=== PATIENT | female | born 1955 | race Caucasian/White ===

== ENCOUNTER 2017-02-14 12:51 | Emergency (ER) | payer MEDICARE, MEDICAID ==
--- NOTE | 2017-02-14 13:30 | EDM.PDOC ---
ED HPI GENERAL MEDICAL PROBLEM - General Chief Complaint: Upper Extremity Injury/Pain Stated Complaint: FALL Time Seen by Provider: 02/14/17 12:56 Source of Information: Reports: Other (care provider) History Limitations: Reports: No Limitations - History of Present Illness INITIAL COMMENTS - FREE TEXT/NARRATIVE: History of present illness: []Has severe cerebral palsy and is wheelchair confined. She received a new lift chair a week ago and he does not have a seatbelt. She started playing with the buttons and it lifted her up and she fell forward out of the chair. Caregivers bring her in for the first time today as she noticed she has yellowish green discoloration on the left anterior chest. Patient has been in her usual state of health on her regular meds and has not had a change in behavior, fevers or respiratory changes. Her caregiver does not note any increased pain with movement. Review of systems: As per history of present illness and below otherwise all systems reviewed and negative. Past medical history: As per history of present illness and as reviewed below otherwise noncontributory. Surgical history: As per history of present illness and as reviewed below otherwise noncontributory. Social history: No reported history of drug or alcohol abuse. Family history: As per history of present illness and as reviewed below otherwise noncontributory. Physical exam: General: Well developed, well nourished in NAD HEENT: Atraumatic, normocephalic, pupils reactive, negative for conjunctival pallor or scleral icterus, mucous membranes moist, throat clear, neck supple, nontender, trachea midline. Lungs: no subcutaneous emphysema, she has a yellowish-green area of Clear to auscultation, breath sounds equal bilaterally, chest nontender. Heart: S1S2, regular, negative for clicks, rubs, or JVD. Abdomen: Soft, nondistended, nontender. Negative for masses or hepatosplenomegaly. Negative for costovertebral tenderness. Pelvis: Stable nontender. Genitourinary: Deferred. Rectal: Deferred. Extremities: Atraumatic, negative for cords or calf pain. Neurovascular unremarkable. Neuro: Awake, alert, oriented. Cranial nerves II through XII unremarkable. Cerebellum unremarkable. Motor and sensory unremarkable throughout. Exam nonfocal. Diagnostics: []Patient's vital signs are stable Therapeutics: [] Impression: []chest wall contusion Plan: []ontinue present care follow-up with PMD as needed return if any shortness of breath, fevers or change in behavior occur Definitive disposition and diagnosis as appropriate pending reevaluation and review of above. no pain Pain Score (Numeric/FACES): 0 - Related Data Allergies Allergy/AdvReac Type Severity Reaction Status Date / Time No Known Allergies Allergy Verified 02/14/17 13:05 Past Medical History HEENT History: Reports: Cataract, Other (See Below) Other HEENT History: right eye posterior capsulotomy Cardiovascular History: Reports: None Respiratory History: Reports: None Gastrointestinal History: Reports: None Genitourinary History: Reports: None CHILD CAREGIVER History: Reports: None Neurological History: Reports: Cerebral Palsy, Other (See Below) Other Neuro History: Spastic Quadriplegia Psychiatric History: Reports: None Endocrine/Metabolic History: Reports: None Hematologic History: Reports: None Immunologic History: Reports: None Oncologic (Cancer) History: Reports: None Dermatologic History: Reports: None - Infectious Disease History Infectious Disease History: Reports: None - Past Surgical History HEENT Surgical History: Reports: Cataract Surgery, Oral Surgery Neurological Surgical History: Reports: Laminectomy Musculoskeletal Surgical History: Reports: Other (See Below) Other Musculoskeletal Surgeries/Procedures:: Laminectomy Social & Family History - Family History Family Medical History: Noncontributory - Tobacco Use Smoking Status *Q: Never Smoker - Caffeine Use Caffeine Use: Reports: None - Recreational Drug Use Recreational Drug Use: No Review of Systems - Review of Systems Review Of Systems: See Below (see history of present illness) ED EXAM, GENERAL - Physical Exam Exam: See Below (see history of present illness) Course - Vital Signs Last Recorded V/S: Last Vital Signs Temp 36.2 C 02/14/17 13:06 Pulse 83 02/14/17 13:06 Resp 18 02/14/17 13:06 BP 123/79 02/14/17 13:06 Pulse Ox 98 02/14/17 13:06 Departure - Departure Time of Disposition: 13:21 Disposition: Home, Self-Care 01 Condition: Good Clinical Impression: Fall Qualifiers: Encounter type: initial encounter Qualified Code(s): W19.XXXA - Unspecified fall, initial encounter Chest wall contusion Qualifiers: Encounter type: initial encounter Laterality: left Qualified Code(s): S20.212A - Contusion of left front wall of thorax, initial encounter - Discharge Information Forms: ED Department Discharge Additional Instructions: The following information is given to patients seen in the emergency department who are being discharged to home. This information is to outline your options for follow-up care. We provide all patients seen in our emergency department with a follow-up referral. The need for follow-up, as well as the timing and circumstances, are variable depending upon the specifics of your emergency department visit. If you don't have a primary care physician on staff, we will provide you with a referral. We always advise you to contact your personal physician following an emergency department visit to inform them of the circumstance of the visit and for follow-up with them and/or the need for any referrals to a consulting specialist. The emergency department will also refer you to a specialist when appropriate. This referral assures that you have the opportunity for follow-up care with a specialist. All of these measure are taken in an effort to provide you with optimal care, which includes your follow-up. Under all circumstances we always encourage you to contact your private physician who remains a resource for coordinating your care. When calling for follow-up care, please make the office aware that this follow-up is from your recent emergency room visit. If for any reason you are refused follow-up, please contact the [facility] Emergency Department at and asked to speak to the emergency department charge nurse. Continue regular meds and present care.follow-up as needed. [facility] [address] [place] [id number]
== END 2017-02-14 13:29 | disposition home or self-care (01) ==
LOC: MW.ED 12:51
CPT/HCPCS: 99282

== ENCOUNTER 2017-08-26 09:09 | Emergency (ER) | payer MEDICARE, MEDICAID ==
[2017-08-26] MEDS ORDERED: Sodium Chloride 0.9% 1,000 ML IV SCH (09:30)
[2017-08-26] MEDS ORDERED: Diazepam 5 MG/ML 10 ML Vial MDV IV ONE (09:30)
--- NOTE | 2017-08-26 09:32 | EDM.PDOC ---
ED HPI GENERAL MEDICAL PROBLEM - General Chief Complaint: Neurological Problem Stated Complaint: SEIZURES Time Seen by Provider: 08/26/17 09:31 Source of Information: Reports: Patient - History of Present Illness INITIAL COMMENTS - FREE TEXT/NARRATIVE: HISTORY AND PHYSICAL: History of present illness: [Patient presents with history of seizure disorder from local long-term She's had recent Adjustment in which her normal keppra dosing was decreased, she did end up with some seizure activity last night, and again this morning, she has not had any seizure activity since arrival to the emergency room on arrival I did prior provide Valium as a prophylactic dose No fever nausea vomiting chills sweats no headache dizziness or palpitation Review of systems: As per history of present illness and below otherwise all systems reviewed and negative. Past medical history: As per history of present illness and as reviewed below otherwise noncontributory. Surgical history: As per history of present illness and as reviewed below otherwise noncontributory. Social history: No reported history of drug or alcohol abuse. Family history: As per history of present illness and as reviewed below otherwise noncontributory. Physical exam: HEENT: Atraumatic, normocephalic, pupils reactive, negative for conjunctival pallor or scleral icterus, mucous membranes moist, throat clear, neck supple, nontender, trachea midline. Lungs: Clear to auscultation, breath sounds equal bilaterally, chest nontender. Heart: S1S2, regular, negative for clicks, rubs, or JVD. Abdomen: Soft, nondistended, nontender. Negative for masses or hepatosplenomegaly. Negative for costovertebral tenderness. Pelvis: Stable nontender. Genitourinary: Deferred. Rectal: Deferred. Extremities: Atraumatic, negative for cords or calf pain. Neurovascular unremarkable. Neuro: Awake, alert, oriented. Cranial nerves II through XII unremarkable. Cerebellum unremarkable. Motor and sensory unremarkable throughout. Exam nonfocal. Diagnostics: [CBC CMP troponin TSH UA Level Chest 1 view EKG ] Therapeutics: [Normal saline 1 25 mL per hour Valium 5 mg IV Due to diversion status patient will be sent to [facility] Dr. Hanley in the ER has accepted patient ] Impression: Hyponatremia [Seizure disorder] Definitive disposition and diagnosis as appropriate pending reevaluation and review of above. - Related Data Allergies Allergy/AdvReac Type Severity Reaction Status Date / Time carbamazepine [From Tegretol] Allergy Nausea and Verified 08/26/17 11:20 Vomiting erythromycin base Allergy Nausea and Verified 08/26/17 11:20 Vomiting Home Meds: Home Meds Baclofen [Baclofen] 20 mg PO TID 02/14/17 [History] Calcium Carbonate [Calcium] 1 tab PO DAILY 02/14/17 [History] Folic Acid 1 mg PO DAILY 02/14/17 [History] LORazepam [Lorazepam] 2 mg IJ ASDIRECTED 02/14/17 [History] Lisinopril 5 mg PO DAILY 02/14/17 [History] Polyethylene Glycol 3350 [MiraLAX] 8.5 gm PO DAILY 02/14/17 [History] carBAMazepine [Tegretol XR] 700 mg PO BID 02/14/17 [History] levETIRAcetam [Keppra] 500 mg PO BID 02/14/17 [History] oxyCODONE 2.5 mg PO TID 02/14/17 [History] oxyCODONE 5 mg PO BEDTIME 02/14/17 [History] Past Medical History HEENT History: Reports: Cataract, Other (See Below) Other HEENT History: right eye posterior capsulotomy Cardiovascular History: Reports: None Respiratory History: Reports: None Gastrointestinal History: Reports: None Genitourinary History: Reports: None BALL SORTER History: Reports: None Neurological History: Reports: Cerebral Palsy, Other (See Below) Other Neuro History: Spastic Quadriplegia Psychiatric History: Reports: None Endocrine/Metabolic History: Reports: None Hematologic History: Reports: None Immunologic History: Reports: None Oncologic (Cancer) History: Reports: None Dermatologic History: Reports: None - Infectious Disease History Infectious Disease History: Reports: None - Past Surgical History HEENT Surgical History: Reports: Cataract Surgery, Oral Surgery Neurological Surgical History: Reports: Laminectomy Musculoskeletal Surgical History: Reports: Other (See Below) Other Musculoskeletal Surgeries/Procedures:: Laminectomy Social & Family History - Family History Family Medical History: Noncontributory - Tobacco Use Smoking Status *Q: Never Smoker - Caffeine Use Caffeine Use: Reports: None - Recreational Drug Use Recreational Drug Use: No ED ROS GENERAL - Review of Systems Review Of Systems: ROS reveals no pertinent complaints other than HPI. ED EXAM, GENERAL - Physical Exam Exam: See Below Course - Vital Signs Last Recorded V/S: Last Vital Signs Temp 96.8 F 08/26/17 10:47 Pulse 76 08/26/17 10:47 Resp 16 08/26/17 10:47 BP 142/82 H 08/26/17 10:47 Pulse Ox 97 08/26/17 10:47 - Orders/Labs/Meds Orders: Active Orders 24 hr Category Date Time Status EKG Documentation Completion [RC] STAT Care 08/26/17 09:31 Active KEPPRA [REF] Stat Lab 08/26/17 09:43 Received UA W/MICROSCOPIC [URIN] Stat Lab 08/26/17 09:30 Uncollected Sodium Chloride 0.9% [Normal Saline] 1,000 ml Med 08/26/17 09:30 Active IV STAT Medication Orders Sodium Chloride (Normal Saline) 1,000 mls @ 125 mls/hr IV STAT CHEVY Last Admin: 08/26/17 09:51 Dose: 125 mls/hr Labs: Laboratory Tests 08/26/17 08/26/17 Range/Units 09:43 09:43 WBC 5.10 (4.0-11.0) K/uL RBC 3.49 L (4.30-5.90) M/uL Hgb 11.2 L (12.0-16.0) g/dL Hct 32.2 L (36.0-46.0) % MCV 92.3 (80.0-98.0) fL MCH 32.1 H (27.0-32.0) pg MCHC 34.8 (31.0-37.0) g/dL RDW Std Deviation 40.8 (28.0-62.0) fl RDW Coeff of Tr 12 (11.0-15.0) % Plt Count 245 (150-400) K/uL MPV 8.50 (7.40-12.00) fL Neut % (Auto) 63.9 (48.0-80.0) % Lymph % (Auto) 20.0 (16.0-40.0) % Hawkins % (Auto) 13.9 (0.0-15.0) % Eos % (Auto) 1.6 (0.0-7.0) % Baso % (Auto) 0.6 (0.0-1.5) % Neut # (Auto) 3.3 (1.4-5.7) K/uL Lymph # (Auto) 1.0 (0.6-2.4) K/uL Hawkins # (Auto) 0.7 (0.0-0.8) K/uL Eos # (Auto) 0.1 (0.0-0.7) K/uL Baso # (Auto) 0.0 (0.0-0.1) K/uL Nucleated RBC % 0.0 /100WBC Nucleated RBCs # 0 K/uL Sodium 129 L (136-146) mmol/L Potassium 4.0 (3.5-5.1) mmol/L Chloride 97 L (98-110) mmol/L Carbon Dioxide 25 (21-31) mmol/L BUN 7 (6.0-23.0) mg/dL Creatinine 0.5 L (0.6-1.5) mg/dL Est Cr Clr Drug Dosing TNP Estimated GFR (MDRD) > 60.0 ml/min Glucose 101 (60-110) mg/dL Calcium 8.5 L (8.8-10.8) mg/dL Total Bilirubin 0.3 (0.1-1.5) mg/dL AST 18 (5-40) IU/L ALT 18 (8-54) IU/L Alkaline Phosphatase 137 (40-150) Troponin I < 0.10 (0.0-0.29) NG/ML Total Protein 6.5 (6.0-8.0) g/dL Albumin 3.6 (3.4-4.8) g/dL Globulin 2.9 (2.0-3.5) g/dL Albumin/Globulin Ratio 1.2 L (1.3-2.8) TSH 3rd Generation 1.93 (0.47-5.0) uIU/mL Meds: Medications Generic Name Dose Route Start Last Admin Trade Name Freq PRN Reason Stop Dose Admin Sodium Chloride 1,000 mls @ 125 mls/hr 08/26/17 09:30 08/26/17 09:51 Normal Saline IV 125 mls/hr STAT CHEVY Administration Discontinued Medications Generic Name Dose Route Start Last Admin Trade Name Freq PRN Reason Stop Dose Admin Diazepam 5 mg 08/26/17 09:30 08/26/17 09:51 Valium IV 08/26/17 09:31 5 mg ONETIME ONE Administration Departure - Departure Time of Disposition: 11:29 Disposition: Home, Self-Care 01 Condition: Good Clinical Impression: Hyponatremia, Seizure disorder - Discharge Information Forms: ED Department Discharge - My Orders Last 24 Hours: My Active Orders 08/26/17 09:30 UA W/MICROSCOPIC [URIN] Stat Sodium Chloride 0.9% [Normal Saline] 1,000 ml IV STAT 08/26/17 09:31 EKG Documentation Completion [RC] STAT 08/26/17 09:43 KEPPRA [REF] Stat - Assessment/Plan Last 24 Hours: My Active Orders 08/26/17 09:30 UA W/MICROSCOPIC [URIN] Stat Sodium Chloride 0.9% [Normal Saline] 1,000 ml IV STAT 08/26/17 09:31 EKG Documentation Completion [RC] STAT 08/26/17 09:43 KEPPRA [REF] Stat
[2017-08-26 10:21] LABS: CHLORIDE,CL 97 mmol/L (98-110); SODIUM,NA 129 mmol/L (136-146)
--- NOTE | 2017-08-26 10:48 | CR ---
Single view portable chest Clinical history: Pain and shortness of breath Comparison: None Findings: The examination is exposed with slight rotation to the right. There is no infiltrate failur e volume loss or other acute finding. No displaced rib fracture noted. No pneumothorax Impression: No acute cardiopulmonary disease
[2017-08-26 13:30] VITALS: BP 161/83
[2017-08-26] MEDS ORDERED: Diazepam 5 MG/ML 10 ML Vial MDV ONE (13:58)
== END 2017-08-26 13:35 ==
LOC: MW.ED 09:09
DX: G40.909 Epilepsy, unspecified, not intractable, without status epilepticus (principal); E87.1 Hypo-osmolality and hyponatremia; Z88.8 Allergy status to other drugs, medicaments and biological substances; Z79.899 Other long term (current) drug therapy
CPT/HCPCS: 36415; 71045; 80053; 80177; 81001; 84443; 84484; 85025; 93005; 96361; 96374; 99285; A9270; J7040; 99284

== ENCOUNTER 2019-01-01 08:10 | Observation (INO) | payer MEDICARE, MEDICAID ==
[~2019-01-01 08:10] MED LIST: ceFAZolin 2 GM in Premix Bag 1 BAG IV SCH
--- NOTE | 2019-01-01 09:16 | PCM.PREANE ---
Preanesthetic Assessment - Anesthesia/Transfusion/Family Hx Anesthesia History: Prior Anesthesia Without Reaction Family History of Anesthesia Reaction: No Transfusion History: No Prior Transfusion(s) Intubation History: Unknown - Review of Systems General: No Symptoms Pulmonary: No Symptoms Cardiovascular: No Symptoms Gastrointestinal: No Symptoms Neurological: Confusion Other: Reports: None - Physical Assessment Weight: 57.153 kg ASA Class: 3 Mental Status: Alert & Oriented x3 Airway Class: Mallampati = 2 Dentition: Reports: Partial (upper) Thyro-Mental Finger Breadths: 3 Mouth Opening Finger Breadths: 3 ROM/Head Extension: Full Lungs: Clear to Auscultation, Normal Respiratory Effort Cardiovascular: Regular Rate, Regular Rhythm - Allergies Allergies/Adverse Reactions: Allergies Allergy/AdvReac Type Severity Reaction Status Date / Time erythromycin base Allergy Nausea and Verified 12/30/18 12:47 Vomiting - Blood Blood Available: No - Anesthesia Plan Pre-Op Medication Ordered: None - Acknowledgements Anesthesia Type Planned: General Anesthesia Pt an Appropriate Candidate for the Planned Anesthesia: Yes Alternatives and Risks of Anesthesia Discussed w Pt/Guardian: Yes Pt/Guardian Understands and Agrees with Anesthesia Plan: Yes PreAnesthesia Questionnaire HEENT History: Reports: Cataract, Other (See Below) Other HEENT History: right eye posterior capsulotomy Cardiovascular History: Reports: Hypertension Respiratory History: Reports: None Gastrointestinal History: Reports: None Genitourinary History: Reports: None LOCKER ROOM MANAGER History: Reports: None Musculoskeletal History: Reports: Arthritis (left hip), Other (See Below) Other Musculoskeletal History: Scoliosis, spastic quadraplegia Neurological History: Reports: Cerebral Palsy, Seizure, Other (See Below) Other Neuro History: Spastic Quadriplegia Psychiatric History: Reports: Other (See Below) Other Psychiatric History: Mental disabled Endocrine/Metabolic History: Reports: None Hematologic History: Reports: None Immunologic History: Reports: None Oncologic (Cancer) History: Reports: None Dermatologic History: Reports: None - Infectious Disease History Infectious Disease History: Reports: None - Past Surgical History HEENT Surgical History: Reports: Cataract Surgery, Oral Surgery Other HEENT Surgeries/Procedures: multiple dental cleanings Female Surgical History: Reports: Other (See Below) Other Female Surgeries/Procedures: Laparoscopy Neurological Surgical History: Reports: C-Spine, Laminectomy Musculoskeletal Surgical History: Reports: Other (See Below) Other Musculoskeletal Surgeries/Procedures:: cervical Laminectomy, C3-C6, lengthening of leg muscles - SUBSTANCE USE Smoking Status *Q: Never Smoker Recreational Drug Use History: No - HOME MEDS Home Medications: Home Meds Baclofen 20 mg PO QID 02/14/17 [History] Folic Acid 1 mg PO DAILY 02/14/17 [History] Lisinopril 5 mg PO DAILY 02/14/17 [History] Polyethylene Glycol 3350 [MiraLAX] 8.5 gm PO ASDIRECTED 02/14/17 [History] carBAMazepine [Tegretol XR] 600 mg PO BID 02/14/17 [History] levETIRAcetam [Keppra] 500 mg PO BID 02/14/17 [History] oxyCODONE 2.5 mg PO QID 02/14/17 [History] oxyCODONE 5 mg PO BEDTIME 02/14/17 [History] Calcium Carbonate/Vitamin D3 [Calcium 600 + Vit D 400 Softgl] 1 cap PO DAILY 12/13 [History] Hydrocodone/Acetaminophen [Hydrocodon-Acetaminophen 5-325] 1 tab PO ASDIRECTED PRN 12/30/18 [History] - CURRENT (IN HOUSE) MEDS Current Meds: Current Medications Cefazolin Sodium/Dextrose 2 gm (/ Premix) 50 mls @ 100 mls/hr IV ONETIME CHEVY Tranexamic Acid (Cyklokapron) 2,000 mg IV ONETIME ONE Stop: 01/01/19 10:01
[2019-01-01] MEDS: Lactated Ringers 1,000 ML IV SCH ×2 (09:51→15:59)
[2019-01-01] MEDS ORDERED: Lidocaine 2% 5 ML SDV ONE (10:34)
[2019-01-01] MEDS ORDERED: Rocuronium 100 MG/10 ML MDV ONE (10:34)
[2019-01-01] MEDS ORDERED: Midazolam 1 MG/ML 2 ML SDV ONE (10:34)
[2019-01-01] MEDS ORDERED: Propofol 200 MG/20 ML SDV ONE (10:34)
[2019-01-01] MEDS ORDERED: fentaNYL 100 MCG/2 ML SDV ONE (10:34)
[2019-01-01] MEDS ORDERED: Sugammadex Sodium 200 MG/2 ML VIAL ONE (10:42)
[2019-01-01] MEDS ORDERED: Octyl 2-Cyanoacrylate 1 Tube ONE (10:58)
[2019-01-01] MEDS ORDERED: Morphine 4 MG/ML Syringe IV PRN (12:12)
[2019-01-01] MEDS ORDERED: Ondansetron 4 MG/2 ML SDV IV PRN (12:12)
[2019-01-01] MEDS ORDERED: Acetaminophen/HYDROcodone 325-5 MG Tab PO PRN (12:12)
--- NOTE | 2019-01-01 12:16 | PCM.OPNOTE ---
- General Post-Op/Procedure Note Date of Surgery/Procedure: 01/01/19 Operative Procedure(s): left hip girdlestone Findings: severe OA Pre Op Diagnosis: left hip severe osteoarthritis Post-Op Diagnosis: same Anesthesia Technique: General ET Tube Primary Surgeon: Luis Cook Mai Dining Car Conductor: Lizzie Villalobos Pathology: femoral head EBL in mLs: 300 Complications: none Condition: Good
[2019-01-01] MEDS ORDERED: Morphine 4 MG/ML Syringe IVPUSH ONE (12:49)
--- NOTE | 2019-01-01 13:16 | PCM.POSTAN ---
POST ANESTHESIA ASSESSMENT - MENTAL STATUS Mental Status: Somnolent, Other (sleepy) - RESPIRATORY Respiratory Status: Respiratory Rate WNL, Airway Patent, O2 Saturation Stable - CARDIOVASCULAR CV Status: Pulse Rate WNL, Blood Pressure Stable - GASTROINTESTINAL GI Status: No Symptoms - PAIN Pain Score: 4 - POST OP HYDRATION Hydration Status: Adequate & Stable - OBSERVATIONS Free Text/Narrative:: No anesthesia problems
--- NOTE | 2019-01-01 13:20 | OR ---
SURGEON: Luis Cespedes MD DATE OF PROCEDURE: 01/01/2019 PRIMARY SURGEON: Luis Cespedes MD. SHOPPING INSPECTOR: Lizzie Villalobos PA-C. PREOPERATIVE DIAGNOSIS: Left hip severe osteoarthritis. POSTOPERATIVE DIAGNOSIS: Left hip severe osteoarthritis. OPERATION PERFORMED: Left hip girdle stone. ANESTHESIA: General. COMPLICATIONS: None. ESTIMATED BLOOD LOSS: 300 mL. SPECIMENS: Femoral head. INDICATIONS: The patient is a 63-year-old handicapped female who is nonverbal and nonambulatory with severe hip arthritis with contractures, her caregivers ability to care for her. I discussed with them the risks, benefits, alternatives, and complications of the above procedure. In the interim, they wished to proceed including the father. DESCRIPTION OF PROCEDURE: The patient was seen in the preoperative area. Operative extremity was marked with the caregiver. She was transferred to the operating room and placed supine on the operating room table. General anesthesia was induced. Endotracheal tube was placed. A formal time-out was taken identifying the correct patient, procedure, and extremity. She received preop antibiotics with Ancef 2 g and TXA. She was assessed. She did not necessarily have tight abductors, but she did have a large flexion contracture, approximately 45 degrees. Inability to abduct the leg to less than 10 degrees negative for midline. It was deemed acceptable to proceed with the hip anteriorly. Her left hip was then prepped and draped in the usual sterile fashion using alcohol followed by ChloraPrep with Ioban covering. An 8 cm incision starting just lateral to the ASIS and going oblique to the femur was made. Dissection was carried down through the subcutaneous tissues. Hemostasis was obtained. The fascia overlying the TFL lateral femoral cutaneous nerve was opened, and the interval between TFL and sartorius and deep between the abductors and rectus was opened. The vastus lateralis fascia was opened. The anterior vessels were coagulated. The indirect and portions of the direct head of the rectus were released and the capsule was held and tagged with 2 sutures. The patient had severe synovitis in the hip and severe arthritis. The neck was exposed and then cut as low as possible just above the lesser and even going into the lesser trochanter. A corkscrew was placed, but the head was unable to reduce due to the poor quality of the bone. It was removed in piecemeal and a complete excision of the head and neck, and portions of the lesser and greater trochanter were removed. The hip ranged very well. We were able to abduct her approximately 30 degrees and extend her down with a flexion contracture approximately 20 to 30 degrees, which is less than the opposite side. The wound was then thoroughly irrigated and removed of any small bone fragments. The 2 tag sutures were tied together. The fascia was closed with #1 Vicryl, subcutaneous tissues with 2-0 STRATAFIX, and skin with running 4-0 Monocryl. Dermabond tape and Aquacel dressing were placed. At this point, there was no tight band of the adductor, therefore, a release was not necessary. Then, a Hogue catheter was placed. She was x-rayed in the operating room and transferred to the recovery room in stable condition. Sponge and needle counts were correct at the end of the case. There were no complications. She will take aspirin for DVT prophylaxis. JERRI CASANOVA /[id number]
[2019-01-01 13:43] LABS: CHLORIDE,CL 96 mmol/L (98-107); SODIUM,NA 128 mmol/L (136-145)
--- NOTE | 2019-01-01 14:17 | PCM.CONS ---
H&P History of Present Illness - General Date of Service: 01/01/19 Admit Problem/Dx: Admission Diagnosis/Problem Admission Diagnosis/Problem Hip pain Source of Information: Old Records, Other (caregivers) History Limitations: Reports: No Limitations - History of Present Illness Initial Comments - Free Text/Narative: This 63 year old female with pmh of seizure disorder, spastic quadraplegia, cerebral palsy, and mentally disabled presented today for L hip girdlestone for severe osteoarthritis. She is alert after surgery, 2 caregivers at the bedside. She is non verbal, but shakes her head yes and now with simple questions. She is comfortable currently lying on her left hip. Caregivers reports seizures are controlled and her last was about 1 year ago. In reveiw of pre-operative labwork, hyponatremia noted at 125. Today Na 128. - Related Data Allergies/Adverse Reactions: Allergies Allergy/AdvReac Type Severity Reaction Status Date / Time erythromycin base Allergy Nausea and Verified 01/01/19 09:46 Vomiting Home Medications: Home Meds Baclofen 20 mg PO QID 02/14/17 [History] Folic Acid 1 mg PO DAILY 02/14/17 [History] Lisinopril 5 mg PO DAILY 02/14/17 [History] Polyethylene Glycol 3350 [MiraLAX] 8.5 gm PO Q2D@0900 02/14/17 [History] carBAMazepine [Tegretol XR] 600 mg PO BID 02/14/17 [History] levETIRAcetam [Keppra] 500 mg PO BID 02/14/17 [History] oxyCODONE 2.5 mg PO QID 02/14/17 [History] oxyCODONE 5 mg PO BEDTIME 02/14/17 [History] Calcium Carbonate/Vitamin D3 [Calcium 600 + Vit D 400 Softgl] 1 tab PO BID 12/30 [History] Hydrocodone/Acetaminophen [Hydrocodon-Acetaminophen 5-325] 1 tab PO ASDIRECTED PRN 12/30/18 [History] Past Medical History HEENT History: Reports: Cataract, Other (See Below) Other HEENT History: right eye posterior capsulotomy Cardiovascular History: Reports: Hypertension Respiratory History: Reports: None Gastrointestinal History: Reports: None Genitourinary History: Reports: None FINANCIAL SERVICES ASSISTANT History: Reports: None Musculoskeletal History: Reports: Arthritis, Other (See Below) Other Musculoskeletal History: Scoliosis, spastic quadraplegia Neurological History: Reports: Cerebral Palsy, Seizure, Other (See Below) Other Neuro History: Spastic Quadriplegia Psychiatric History: Reports: Other (See Below) Other Psychiatric History: Mental disabled Endocrine/Metabolic History: Reports: None Hematologic History: Reports: None Immunologic History: Reports: None Oncologic (Cancer) History: Reports: None Dermatologic History: Reports: None - Infectious Disease History Infectious Disease History: Reports: None - Past Surgical History HEENT Surgical History: Reports: Cataract Surgery, Oral Surgery Other HEENT Surgeries/Procedures: multiple dental cleanings Female Surgical History: Reports: Other (See Below) Other Female Surgeries/Procedures: Laparoscopy Neurological Surgical History: Reports: C-Spine, Laminectomy Musculoskeletal Surgical History: Reports: Other (See Below) Other Musculoskeletal Surgeries/Procedures:: cervical Laminectomy, C3-C6, lengthening of leg muscles Social & Family History - Family History Family Medical History: Noncontributory - Tobacco Use Smoking Status *Q: Never Smoker - Caffeine Use Caffeine Use: Reports: None - Recreational Drug Use Recreational Drug Use: No H&P Review of Systems - Review of Systems: Review Of Systems: See Below (answers simple questions, shaking head yes or no) Pulmonary: Reports: No Symptoms. Denies: Shortness of Breath Cardiovascular: Reports: No Symptoms. Denies: Chest Pain Musculoskeletal: Reports: No Symptoms. Denies: Leg Pain Exam - Exam Exam: See Below - Vital Signs Vital Signs: Last Vital Signs Temp 95.6 F 01/01/19 13:45 Pulse 72 01/01/19 13:45 Resp 18 01/01/19 13:45 BP 111/76 01/01/19 13:45 Pulse Ox 97 01/01/19 13:45 Weight: 57.153 kg - Exam Quality Assessment: Supplemental Oxygen General: Alert, Cooperative Lungs: Clear to Auscultation, Normal Respiratory Effort Cardiovascular: Regular Rate, Regular Rhythm, Normal S1, Normal S2 GI/Abdominal Exam: Normal Bowel Sounds, Soft, Non-Tender, No Distention Extremities: Normal Inspection, No Pedal Edema Neuro Extensive - Mental Status: Alert, Normal Mood/Affect, Normal Cognition Psychiatric: Alert, Normal Affect, Normal Mood - Patient Data Lab Results Last 24 hrs: Laboratory Results - last 24 hr 01/01/19 01/01/19 Range/Units 13:07 13:07 WBC 6.43 (4.0-11.0) K/uL RBC 3.24 L (4.30-5.90) M/uL Hgb 10.5 L (12.0-16.0) g/dL Hct 30.3 L (36.0-46.0) % MCV 93.5 (80.0-98.0) fL MCH 32.4 H (27.0-32.0) pg MCHC 34.7 (31.0-37.0) g/dL RDW Std Deviation 40.0 (28.0-62.0) fl RDW Coeff of Tr 12 (11.0-15.0) % Plt Count 173 (150-400) K/uL MPV 9.30 (7.40-12.00) fL Neut % (Auto) 70.0 (48.0-80.0) % Lymph % (Auto) 19.1 (16.0-40.0) % [place] % (Auto) 9.5 (0.0-15.0) % Eos % (Auto) 1.1 (0.0-7.0) % Baso % (Auto) 0.3 (0.0-1.5) % Neut # (Auto) 4.5 (1.4-5.7) K/uL Lymph # (Auto) 1.2 (0.6-2.4) K/uL [place] # (Auto) 0.6 (0.0-0.8) K/uL Eos # (Auto) 0.1 (0.0-0.7) K/uL Baso # (Auto) 0.0 (0.0-0.1) K/uL Nucleated RBC % 0.0 /100WBC Nucleated RBCs # 0 K/uL Sodium 128 L (136-145) mmol/L Potassium 3.4 L (3.5-5.1) mmol/L Chloride 96 L (98-107) mmol/L Carbon Dioxide 24.2 (21.0-32.0) mmol/L BUN 6 L (7.0-18.0) mg/dL Creatinine 0.4 L (0.6-1.0) mg/dL Est Cr Clr Drug Dosing TNP Estimated GFR (MDRD) > 60.0 ml/min Glucose 130 H (74-106) mg/dL Calcium 7.9 L (8.5-10.1) mg/dL Result Diagrams: 01/01/19 13:07 01/01/19 13:07 Consult PN Assessment/Plan Procedures: Procedures ASSAY OF TROPONIN QUANT (08/26/17) ASSAY THYROID STIM HORMONE (08/26/17) COMPLETE CBC W/AUTO DIFF WBC (08/26/17) COMPREHEN METABOLIC PANEL (08/26/17) DRAIN/INJ JOINT/BURSA W/O US (11/15/14) DRUG SCRN CLIFF LEVETIRACETAM (08/26/17) ELECTROCARDIOGRAM TRACING (08/26/17) EMERGENCY DEPT VISIT (08/26/17) EMERGENCY DEPT VISIT (02/14/17) FLUOROSCOPY <1 HR PHYS/QHP (11/15/14) HYDRATE IV INFUSION ADD-ON (08/26/17) OFFICE/OUTPATIENT VISIT NEW (03/04/17) OT EVAL MOD COMPLEX 45 MIN (01/06/17) ROUTINE VENIPUNCTURE (08/26/17) THER/PROPH/DIAG INJ IV PUSH (08/26/17) URINALYSIS AUTO W/SCOPE (08/26/17) US EXAM PELVIC COMPLETE (06/25/17) X-RAY EXAM CHEST 1 VIEW (08/26/17) (1) S/P Girdlestone procedure SNOMED Code(s): 144167054 Code(s): Z98.890 - OTHER SPECIFIED POSTPROCEDURAL STATES Current Visit: Yes (2) Spastic quadriplegia SNOMED Code(s): 255133964 Code(s): G82.50 - QUADRIPLEGIA, UNSPECIFIED Current Visit: Yes (3) Cerebral palsy SNOMED Code(s): 847176953 Code(s): G80.9 - CEREBRAL PALSY, UNSPECIFIED Current Visit: Yes (4) Hyponatremia SNOMED Code(s): 14745899 Code(s): E87.1 - HYPO-OSMOLALITY AND HYPONATREMIA Current Visit: No (5) Seizure disorder SNOMED Code(s): 274813654 Code(s): G40.909 - EPILEPSY, UNSP, NOT INTRACTABLE, WITHOUT STATUS EPILEPTICUS Current Visit: No Problem List Initiated/Reviewed/Updated: Yes My Orders Last 24 Hours: My Active Orders 01/01/19 Lunch Regular Diet [DIET] Plan: This 63 year old female admitted with L hip girdlestone procedure for osteoarthritis. Hospitalist consulted for medical management 1. S/P girdlestone procedure to L hip: Orders per Dr Cespedes. Monitor for sedation with Home medication of Baclofen and other narcotics for pain. 2. Seizure disorder: Continue Tegretol and Keppra. 3. Hyponatremia: Appears to be at baseline. Will monitor in am.
[2019-01-01] MEDS: diazePAM 5 MG/ML MDV IVPUSH SCH ×3 (16:48→21:42)
[2019-01-01] MEDS: ceFAZolin 1 GM in Premix Bag 1 BAG IV SCH (16:49)
[2019-01-01] MEDS: Baclofen 10 MG Tab PO SCH ×2 (18:44→23:27)
[2019-01-01] MEDS: oxyCODONE 5 MG Tab PO SCH ×2 (18:45→23:27)
[2019-01-01] MEDS: levETIRAcetam 500 MG Tab PO SCH (20:18)
[2019-01-01] MEDS: carBAMazepine 100 MG Cap.ER PO SCH (20:19)
[2019-01-01] MEDS ORDERED: oxyCODONE 5 MG Tab PO SCH (21:00)
[2019-01-02] MEDS: ceFAZolin 1 GM in Premix Bag 1 BAG IV SCH ×2 (00:17→10:00)
[2019-01-02] MEDS: Lactated Ringers 1,000 ML IV SCH (00:18)
[2019-01-02] MEDS: Baclofen 10 MG Tab PO SCH ×3 (00:21→12:24)
[2019-01-02] MEDS: oxyCODONE 5 MG Tab PO SCH ×3 (00:21→12:24)
[2019-01-02] MEDS: diazePAM 5 MG/ML MDV IVPUSH SCH ×2 (03:42→10:11)
--- NOTE | 2019-01-02 08:44 | PCM.SN ---
- Free Text/Narrative Note: Subjective: Patient is able to nod her head she is in less pain than before surgery. She denies other issues. Nursing noted that she did not need to take her regular scheduled pain medications overnight Objective: Afebrile, vital signs stable Left thigh dressing is clean/dry/intact. I'm able to move her hip with minimal pain. There is no swelling proximally or distally. There is a palpable pulse. Assessment/plan: Postoperative day #1 Girdlestone left hip severe arthritis with spastic quadriplegia - Activity as tolerated - Leave dressing on - DC [place] - Return to home today. - Ecotrin for DVT prophylaxis
[2019-01-02] MEDS ORDERED: Sodium Chloride 0.9% 10 ML Syringe FLUSH PRN (08:45)
[2019-01-02] MEDS ORDERED: Sodium Chloride 0.9% 2.5 ML Syringe FLUSH PRN (08:45)
[2019-01-02] MEDS ORDERED: Lisinopril 5 MG Tab PO SCH (09:00)
[2019-01-02] MEDS ORDERED: Aspirin 325 MG Tab PO SCH (09:00)
[2019-01-02] MEDS ORDERED: Folic Acid 1 MG Tab PO SCH (09:00)
[2019-01-02] MEDS ORDERED: Celecoxib 100 MG Cap PO SCH (09:00)
[2019-01-02] MEDS: carBAMazepine 100 MG Cap.ER PO SCH (10:01)
[2019-01-02] MEDS: levETIRAcetam 500 MG Tab PO SCH (10:04)
[2019-01-03] MEDS ORDERED: Polyethylene Glycol 3350 Powder 17 GM Packet PO SCH (09:00)
--- NOTE | 2019-01-03 09:22 | PCM48HPAN ---
Post Anesthesia Note - EVALUATION WITHIN 48HRS OF ANESTHETIC Vital Signs in Normal Range: Yes Patient Participated in Evaluation: Yes Respiratory Function Stable: Yes Airway Patent: Yes Cardiovascular Function Stable: Yes Hydration Status Stable: Yes Pain Control Satisfactory: Yes Nausea and Vomiting Control Satisfactory: Yes Mental Status Recovered: Yes Resp Rate: 20 Blood Pressure: 122/74 - COMMENTS/OBSERVATIONS Free Text/Narrative:: no anesthesia problems
[2019-01-03 09:23] VITALS: BP 122/74
== END 2019-01-02 12:40 | disposition home or self-care (01) ==
LOC: INTOOBSV 08:10 → MW.MS 08:10
PROVIDERS: ADMIT Orthopaedic Surgery; ATTEND Orthopaedic Surgery
DX: M16.12 Unilateral primary osteoarthritis, left hip (principal); M65.852 Other synovitis and tenosynovitis, left thigh; I10 Essential (primary) hypertension; G40.909 Epilepsy, unspecified, not intractable, without status epilepticus; G80.0 Spastic quadriplegic cerebral palsy; Z88.1 Allergy status to other antibiotic agents; Z79.891 Long term (current) use of opiate analgesic; Z79.899 Other long term (current) drug therapy
CPT/HCPCS: 27122; 36415; 80048; 85014; 85018; 85025; 96374; 96376; A4217; A9270; G0378; J0131; J0690; J2001; J2250; J2270; J2704; J3010; J3490; J7120

== ENCOUNTER 2019-01-03 20:51 | Emergency (ER) | payer MEDICARE, MEDICAID ==
[2019-01-03] MEDS ORDERED: Etomidate 2 MG/ML 20 ML SDV IVPUSH ONE (20:52)
[2019-01-03] MEDS ORDERED: Succinylcholine 200 MG/10 ML MDV IV ONE (20:52)
[2019-01-03] MEDS ORDERED: Naloxone 0.4 MG/ML Syringe IVPUSH ONE (21:01)
[2019-01-03] MEDS ORDERED: Ondansetron 4 MG/2 ML SDV IVPUSH ONE (21:01)
[2019-01-03] MEDS ORDERED: Ondansetron 4 MG/2 ML SDV ONE (21:01)
[2019-01-03] MEDS ORDERED: Naloxone 0.4 MG/ML Syringe ONE ×2 (21:01→21:05)
[2019-01-03 21:11] VITALS: BP 113/87
[2019-01-03] MEDS ORDERED: Sodium Chloride 0.9% 1,000 ML IV ONE ×3 (21:22→21:45)
[2019-01-03] MEDS ORDERED: Sodium Chloride 0.9% 10 ML Syringe FLUSH PRN (21:22)
[2019-01-03] MEDS ORDERED: Piperacillin/Tazobactam 3.375 GM in Sodium Chloride 0.9% 50 ML IV ONE (21:22)
[2019-01-03] MEDS ORDERED: Clindamycin Phosphate in D5W 600 MG in Premix Bag 50 BAG IV ONE ×2 (21:22)
[2019-01-03] MEDS ORDERED: Sodium Chloride 0.9% 2.5 ML Syringe FLUSH PRN (21:22)
[2019-01-03] MEDS ORDERED: Clindamycin Phosphate in D5W 50 ML ONE (21:23)
--- NOTE | 2019-01-03 21:41 | EDM.PDOC ---
ED HPI GENERAL MEDICAL PROBLEM - General Chief Complaint: Neurological Problem Stated Complaint: ALTERED MENTAL STATE Time Seen by Provider: 01/03/19 20:55 - History of Present Illness INITIAL COMMENTS - FREE TEXT/NARRATIVE: HISTORY AND PHYSICAL: History of present illness: The patient is a 63-year-old female who presents via EMS from a halfway with reported altered mental status. Caregivers say that she was found altered and gurgling with vomiting. It is unclear if she had a seizure or became obtunded from pain medications and then vomited and subsequently aspirated or just had a seizure and became altered. The story is very unclear as she was last seen normal and then found in this current state. The patient had emesis all over her nightgown and was gurgling respirations on arrival. This patient has a history of a seizure disorder spastic quadriplegia cerebral palsy mental disability and she is normally nonverbal. The patient offered no history she was in extremis and caregivers were not present to give anymore information. Caregivers eventually arrived at the ED with her med list. The patient just underwent left heart surgery here in our facility and was noted to have a low sodium of 128 prior to surgery. The surgery was still performed and a medical consult was performed by our hospitalist preop. According to the brief history I have she was doing well until these events. Review of systems: As per history of present illness and below otherwise all systems reviewed and negative. Past medical history: As per history of present illness and as reviewed below otherwise noncontributory. Surgical history: As per history of present illness and as reviewed below otherwise noncontributory. Social history: No reported history of drug or alcohol abuse. Family history: As per history of present illness and as reviewed below otherwise noncontributory. Physical exam: General: Well-developed very petite female who is gurgling respirations with emesis and her mouth and on her nightgown and out of her nose and respirations are as documented. On my personal evaluation her O2 sats were dropping down to the 60s and in the 50s. A nonrebreather brought her up to the 90s. A nasal trumpet was placed in the right near by me on arrival HEENT: Atraumatic, normocephalic, pupils very pinpoint and nonreactive, negative for conjunctival pallor or scleral icterus, mucous membranes moist, throat clear, neck supple, nontender, trachea midline. Lungs: Breath sounds rales and rhonchi throughout all lung canas right greater than left and there is abdominal worker breathing and audible noisy airway breath sounds equal bilaterally, chest nontender. Heart: S1S2, regular rhythm and tachycardic rate of my evaluation but a murmur cannot be appreciated as there is so much airway noise. Abdomen: Soft, nondistended, nontender. Negative for masses or hepatosplenomegaly. Bowel sounds are hypoactive Pelvis: Stable nontender. There is a dressing noted at the left hip area which is clean and dry and there is no surrounding erythema Genitourinary: Deferred. Rectal: Deferred. Extremities: Atraumatic, atrophied in the lower extremity and there is no spontaneous movement but no bony defects or deformities are appreciated Neurovascular unremarkable. Neuro: Patient is obtunded and nonverbal and is not responding to painful stimuli. She is not moving any extremities spontaneously. Further evaluation is not performed due to extremis Skin: Cool and dry and very pallor overall Diagnostics: Chest x-ray 2 CBC CMP lactic acid troponin EKG UA blood cultures Therapeutics: IV fluids Zofran Narcan Zosyn and clindamycin On patient arrival it was determined immediately that she needed intubation for airway protection and to improve oxygenation. Anesthesia was called and intubation was performed without complication or difficulty. Please see his note for further information. I placed a nasal trumpet in the right side without difficulty. I attempted several times to gain access for a central line in the right femoral area and did access the artery once and was unable to access the vein so these attempts were aborted. Right interosseous line was placed without complication under semi-sterile procedures. Line is good and is currently being used. Please see anesthesia's note as they attempted to get a right neck line both EJ and IJ and were unsuccessful. A post attempt and post intubation x-ray was performed Patient did become hypotensive with our efforts and is receiving IV fluids and after intubation and some IV fluids her pressure did normalize. She is still slightly tachycardic. 2124: Case was discussed with Dr. Bray at [facility] in the ER and he is aware of the situation except the patient. Flight team is currently at bedside. On my reevaluation of her pupillary exam they are currently equal and only [address] Bray had asked me about the patient's advanced directives and I will attempt to discuss with the caregiver this information prior to transport out but with the flight team at bedside and the patient's current status she will still continue to be transported as is. Impression: Altered mental status, aspiration with hypoxemia Definitive disposition and diagnosis as appropriate pending reevaluation and review of above. - Related Data Allergies Allergy/AdvReac Type Severity Reaction Status Date / Time erythromycin base Allergy Nausea and Verified 01/03/19 21:14 Vomiting Home Meds: Home Meds Baclofen 20 mg PO QID 02/14/17 [History] Folic Acid 1 mg PO DAILY 02/14/17 [History] Lisinopril 5 mg PO DAILY 02/14/17 [History] Polyethylene Glycol 3350 [MiraLAX] 8.5 gm PO Q2D@0900 02/14/17 [History] carBAMazepine [Tegretol XR] 600 mg PO BID 02/14/17 [History] levETIRAcetam [Keppra] 500 mg PO BID 02/14/17 [History] oxyCODONE 2.5 mg PO QID 02/14/17 [History] oxyCODONE 5 mg PO BEDTIME 02/14/17 [History] Calcium Carbonate/Vitamin D3 [Calcium 600 + Vit D 400 Softgl] 1 tab PO BID 12/30 [History] Hydrocodone/Acetaminophen [Hydrocodon-Acetaminophen 5-325] 1 tab PO ASDIRECTED PRN 12/30/18 [History] Past Medical History HEENT History: Reports: Cataract, Other (See Below) Other HEENT History: right eye posterior capsulotomy Cardiovascular History: Reports: Hypertension Respiratory History: Reports: None Gastrointestinal History: Reports: None Genitourinary History: Reports: None LOCKSTITCH ZIPPER SETTER History: Reports: None Musculoskeletal History: Reports: Arthritis, Other (See Below) Other Musculoskeletal History: Scoliosis, spastic quadraplegia Neurological History: Reports: Cerebral Palsy, Seizure, Other (See Below) Other Neuro History: Spastic Quadriplegia Psychiatric History: Reports: Other (See Below) Other Psychiatric History: Mental disabled Endocrine/Metabolic History: Reports: None Hematologic History: Reports: None Immunologic History: Reports: None Oncologic (Cancer) History: Reports: None Dermatologic History: Reports: None - Infectious Disease History Infectious Disease History: Reports: None - Past Surgical History HEENT Surgical History: Reports: Cataract Surgery, Oral Surgery Other HEENT Surgeries/Procedures: multiple dental cleanings Female Surgical History: Reports: Other (See Below) Other Female Surgeries/Procedures: Laparoscopy Neurological Surgical History: Reports: C-Spine, Laminectomy Musculoskeletal Surgical History: Reports: Other (See Below) Other Musculoskeletal Surgeries/Procedures:: cervical Laminectomy, C3-C6, lengthening of leg muscles Social & Family History - Family History Family Medical History: Noncontributory - Caffeine Use Caffeine Use: Reports: None ED ROS GENERAL - Review of Systems Review Of Systems: ROS reveals no pertinent complaints other than HPI. ED EXAM, GENERAL - Physical Exam Exam: See Below (See dictation) Course - Vital Signs Last Recorded V/S: Last Vital Signs Temp 35.5 C 01/03/19 21:05 Pulse 117 H 01/03/19 21:05 Resp BP 113/87 01/03/19 21:05 Pulse Ox 84 L 01/03/19 21:05 - Orders/Labs/Meds Orders: Active Orders 24 hr Category Date Time Status Blood Glucose Check, Bedside [RC] ONETIME Care 01/03/19 21:23 Ordered Cardiac Monitoring [RC] . DIRECTED Care 01/03/19 21:22 Ordered EKG Documentation Completion [RC] STAT Care 01/03/19 21:22 Ordered Oxygen Therapy, ED [RC] ASDIRECTED Care 01/03/19 21:22 Ordered Pulse Oximetry [RC] ASDIRECTED Care 01/03/19 21:22 Ordered Chest 1V Frontal [CR] Stat Exams 01/03/19 21:31 Ordered Chest 1V Frontal [CR] Stat Exams 01/03/19 21:31 Ordered CBC WITH AUTO DIFF [HEME] Stat Lab 01/03/19 21:23 Ordered COMPREHENSIVE METABOLIC PN,CMP [CHEM] Stat Lab 01/03/19 21:23 Ordered CULTURE BLOOD [BC] Stat Lab 01/03/19 21:27 Ordered CULTURE BLOOD [BC] Stat Lab 01/03/19 21:27 Ordered CULTURE URINE [RM] Stat Lab 01/03/19 21:25 Received LACTATE WITH REFLEX [BG] Stat Lab 01/03/19 21:25 Ordered TROPONIN I [CHEM] Stat Lab 01/03/19 21:23 Ordered UA W/MICROSCOPIC [URIN] Stat Lab 01/03/19 21:25 Results Clindamycin Phosphate in D5W [Cleocin in D5W] 600 mg Med 01/03/19 21:22 Ordered Premix Bag 50 bag IV ONETIME Piperacillin/Tazobactam [Piperacil-Tazobact] 3.375 gm Med 01/03/19 21:22 Ordered Sodium Chloride 0.9% [Normal Saline] 50 ml IV ONETIME Sodium Chloride 0.9% [Normal Saline] 1,000 ml Med 01/03/19 21:22 Ordered IV STAT Sodium Chloride 0.9% [Normal Saline] 1,000 ml Med 01/03/19 21:26 Ordered IV STAT Sodium Chloride 0.9% [Saline Flush] Med 01/03/19 21:22 Ordered 10 ml FLUSH ASDIRECTED PRN Sodium Chloride 0.9% [Saline Flush] Med 01/03/19 21:22 Ordered 2.5 ml FLUSH ASDIRECTED PRN Blood Culture x2 Reflex Set [OM.PC] Stat Oth 01/03/19 21:25 Ordered Saline Lock Insert [OM.PC] Stat Oth 01/03/19 21:22 Ordered Medication Orders Clindamycin Phosphate 600 mg/ (Premix) 50 mls @ 100 mls/hr IV ONETIME ONE Stop: 01/03/19 21:51 Piperacillin Sod/Tazobactam (Sod 3.375 gm/ Sodium Chloride) 50 mls @ 100 mls/ hr IV ONETIME ONE Stop: 01/03/19 21:51 Sodium Chloride (Normal Saline) 1,000 mls @ 999 mls/hr IV STAT ONE Stop: 01/03/19 22:22 Sodium Chloride (Normal Saline) 1,000 mls @ 999 mls/hr IV STAT ONE Stop: 01/03/19 22:26 Sodium Chloride (Saline Flush) 10 ml FLUSH ASDIRECTED PRN PRN Reason: Keep Vein Open Sodium Chloride (Saline Flush) 2.5 ml FLUSH ASDIRECTED PRN PRN Reason: Keep Vein Open Labs: Laboratory Tests 01/03/19 Range/Units 21:25 Urine Color DARK YELLOW Urine Appearance SLT CLOUDY Urine pH 6.5 (5.0-8.0) Ur Specific [place] <= 1.005 (1.001-1.035) Urine Protein NEGATIVE (NEGATIVE) mg/dL Urine Glucose (UA) NEGATIVE (NEGATIVE) mg/dL Urine Ketones NEGATIVE (NEGATIVE) mg/dL Urine Occult Blood NEGATIVE (NEGATIVE) Urine Nitrite NEGATIVE (NEGATIVE) Urine Bilirubin NEGATIVE (NEGATIVE) Urine Urobilinogen 0.2 (<2.0) EU/dL Ur Leukocyte Esterase TRACE H (NEGATIVE) Meds: Medications Generic Name Dose Route Start Last Admin Trade Name Freq PRN Reason Stop Dose Admin Clindamycin Phosphate 600 mg/ 50 mls @ 100 mls/hr 01/03/19 21:22 Premix IV 01/03/19 21:51 ONETIME ONE Piperacillin Sod/Tazobactam 50 mls @ 100 mls/hr 01/03/19 21:22 Sod 3.375 gm/ Sodium Chloride IV 01/03/19 21:51 ONETIME ONE Sodium Chloride 1,000 mls @ 999 mls/hr 01/03/19 21:22 Normal Saline IV 01/03/19 22:22 STAT ONE Sodium Chloride 1,000 mls @ 999 mls/hr 01/03/19 21:26 Normal Saline IV 01/03/19 22:26 STAT ONE Sodium Chloride 10 ml 01/03/19 21:22 Saline Flush FLUSH ASDIRECTED PRN Keep Vein Open Sodium Chloride 2.5 ml 01/03/19 21:22 Saline Flush FLUSH ASDIRECTED PRN Keep Vein Open Discontinued Medications Generic Name Dose Route Start Last Admin Trade Name Freq PRN Reason Stop Dose Admin Clindamycin Phosphate Confirm 01/03/19 21:23 Cleocin In D5w Administered 01/03/19 21:24 Dose 50 mls @ as directed .ROUTE .STK-MED ONE Naloxone HCl Confirm 01/03/19 21:01 Narcan Administered 01/03/19 21:02 Dose 0.4 mg .ROUTE .STK-MED ONE Naloxone HCl Confirm 01/03/19 21:05 Narcan Administered 01/03/19 21:06 Dose 3.2 mg .ROUTE .STK-MED ONE Ondansetron HCl Confirm 01/03/19 21:01 Zofran Administered 01/03/19 21:02 Dose 4 mg .ROUTE .STK-MED ONE Departure - Departure Time of Disposition: 21:42 Disposition: DC/Tfer to Acute Hospital 02 Condition: Critical Clinical Impression: Acute respiratory failure with hypoxemia Aspiration into airway Qualifiers: Encounter type: initial encounter Qualified Code(s): T17.908A - Unspecified foreign body in respiratory tract, part unspecified causing other injury, initial encounter - Discharge Information Referrals: PCP,Unknown [Primary Care Provider] - - My Orders Last 24 Hours: My Active Orders 01/03/19 21:22 Cardiac Monitoring [RC] . DIRECTED EKG Documentation Completion [RC] STAT Oxygen Therapy, ED [RC] ASDIRECTED Pulse Oximetry [RC] ASDIRECTED Clindamycin Phosphate in D5W [Cleocin in D5W] 600 mg Premix Bag 50 bag IV ONETIME Piperacillin/Tazobactam [Piperacil-Tazobact] 3.375 gm Sodium Chloride 0.9% [ Normal Saline] 50 ml IV ONETIME Sodium Chloride 0.9% [Normal Saline] 1,000 ml IV STAT Sodium Chloride 0.9% [Saline Flush] 10 ml FLUSH ASDIRECTED PRN Sodium Chloride 0.9% [Saline Flush] 2.5 ml FLUSH ASDIRECTED PRN Saline Lock Insert [OM.PC] Stat 01/03/19 21:23 Blood Glucose Check, Bedside [RC] ONETIME CBC WITH AUTO DIFF [HEME] Stat COMPREHENSIVE METABOLIC PN,CMP [CHEM] Stat TROPONIN I [CHEM] Stat 01/03/19 21:25 CULTURE URINE [RM] Stat LACTATE WITH REFLEX [BG] Stat UA W/MICROSCOPIC [URIN] Stat Blood Culture x2 Reflex Set [OM.PC] Stat 01/03/19 21:26 Sodium Chloride 0.9% [Normal Saline] 1,000 ml IV STAT 01/03/19 21:27 CULTURE BLOOD [BC] Stat CULTURE BLOOD [BC] Stat 01/03/19 21:31 Chest 1V Frontal [CR] Stat Chest 1V Frontal [CR] Stat - Assessment/Plan Last 24 Hours: My Active Orders 01/03/19 21:22 Cardiac Monitoring [RC] . DIRECTED EKG Documentation Completion [RC] STAT Oxygen Therapy, ED [RC] ASDIRECTED Pulse Oximetry [RC] ASDIRECTED Clindamycin Phosphate in D5W [Cleocin in D5W] 600 mg Premix Bag 50 bag IV ONETIME Piperacillin/Tazobactam [Piperacil-Tazobact] 3.375 gm Sodium Chloride 0.9% [ Normal Saline] 50 ml IV ONETIME Sodium Chloride 0.9% [Normal Saline] 1,000 ml IV STAT Sodium Chloride 0.9% [Saline Flush] 10 ml FLUSH ASDIRECTED PRN Sodium Chloride 0.9% [Saline Flush] 2.5 ml FLUSH ASDIRECTED PRN Saline Lock Insert [OM.PC] Stat 01/03/19 21:23 Blood Glucose Check, Bedside [RC] ONETIME CBC WITH AUTO DIFF [HEME] Stat COMPREHENSIVE METABOLIC PN,CMP [CHEM] Stat TROPONIN I [CHEM] Stat 01/03/19 21:25 CULTURE URINE [RM] Stat LACTATE WITH REFLEX [BG] Stat UA W/MICROSCOPIC [URIN] Stat Blood Culture x2 Reflex Set [OM.PC] Stat 01/03/19 21:26 Sodium Chloride 0.9% [Normal Saline] 1,000 ml IV STAT 01/03/19 21:27 CULTURE BLOOD [BC] Stat CULTURE BLOOD [BC] Stat 01/03/19 21:31 Chest 1V Frontal [CR] Stat Chest 1V Frontal [CR] Stat
--- NOTE | 2019-01-03 22:16 | CR ---
INDICATION: Pain, shortness of breath TECHNIQUE: Chest 1 views COMPARISON: Chest x-ray 01/03/2019 at 2119 FINDINGS: Cardiovascular and mediastinum: Normal heart size with endotracheal tube at the midtrachea level. Lungs and pleural spaces: Mild elevation left hemidiaphragm. No pleural effusion or pneumothorax. Mild reticular interstitial prominence within the right lung redemonstrated. Bones and soft tissues: No significant findings. IMPRESSION: Interval placement of endotracheal tube, tip at the midtrachea level. Dictated by Moshe Mendoza MD @ Jan 03 2019 10:11PM Signed by Dr. Moshe Mendoza @ Jan 03 2019 10:14PM
--- NOTE | 2019-01-03 22:16 | PCM.SN ---
- Free Text/Narrative Note: Called [facility] for Intubation on PT with aloc and unknown npo status but upon arival patient had vomited and was emergently intubated with glidascope 3 and 7.5 ett placed positive ETCO2 and EBSB. Saturations oncreased to 100% and later CXR show placement below chords. Multiple asttempts for line placement and blood draws to R groin and R EJ unsuccessful.
--- NOTE | 2019-01-03 22:23 | CR ---
HISTORY: Chest pain and shortness of breath. COMPARISON: None available FINDINGS: A portable erect AP view of the chest was obtained at 21 19 hours. There is mild patchy infiltrate in the right perihilar lung consistent with pneumonia. It is unclear what lobe this infiltrate is in. There is mild patchy left infrahilar infiltrate consistent with mild left lower lobe atelectasis or pneumonia. There is moderate elevation of the left hemidiaphragm consistent with eventration. The heart is normal in size. The mediastinum is normal in appearance. The osseous structures are normal in appearance for the patient`s age. IMPRESSION: Mild patchy right perihilar infiltrate, suspicious for pneumonia. Mild patchy left infrahilar infiltrate, probably atelectasis. Dictated by Basil Ewing MD @ Jan 03 2019 10:20PM Signed by Dr. Basil Ewing @ Jan 03 2019 10:22PM
[2019-01-03 22:34] LABS: CHLORIDE,CL 111 mmol/L (98-107); SODIUM,NA 139 mmol/L (136-145)
== END 2019-01-03 22:11 ==
LOC: MW.ED 20:51
DX: J96.01 Acute respiratory failure with hypoxia (principal); T17.908A Unspecified foreign body in respiratory tract, part unspecified causing other injury, initial encounter; I10 Essential (primary) hypertension; R41.82 Altered mental status, unspecified; Z88.1 Allergy status to other antibiotic agents; Z79.899 Other long term (current) drug therapy; X58.XXXA Exposure to other specified factors, initial encounter
CPT/HCPCS: 71045; 80053; 81001; 83605; 84484; 87086; 87088; 87186; 96365; 96375; 99291; 99292; A4217; A9270; J0330; J2405; J2543; J3490; J7040; J7050; 31500

== ENCOUNTER 2019-02-03 23:43 | Emergency (ER) | payer MEDICARE, MEDICAID ==
--- NOTE | 2019-02-04 00:20 | EDM.PDOC ---
<Dk Haley - Last Filed: 02/04/19 03:09> ED HPI GENERAL MEDICAL PROBLEM - General Chief Complaint: Gastrointestinal Problem Stated Complaint: FEEDING TUBE Time Seen by Provider: 02/04/19 00:07 - History of Present Illness INITIAL COMMENTS - FREE TEXT/NARRATIVE: HISTORY AND PHYSICAL: History of present illness: A 63-year-old female presents to the emergency department accompanied with her caregiver for the evaluation of a PEG tube removal. Patient was just discharged from [facility] today after a extended stay with multiple complications including aspiration resulting in a PEG tube placement. Tube was inadvertently removed approximately one hour ago when the patient was being transferred back into bed. Up when the PEG tube was removed. Small amount of tube feedings were found to be drainage from the PEG tube site per caregiver. Previous ED records reviewed. [facility] records not available at this time. Review of systems: As per history of present illness and below otherwise all systems reviewed and negative. Past medical history: As per history of present illness and as reviewed below otherwise noncontributory. Surgical history: As per history of present illness and as reviewed below otherwise noncontributory. Social history: No reported history of drug or alcohol abuse. Family history: As per history of present illness and as reviewed below otherwise noncontributory. Physical exam: HEENT: Atraumatic, normocephalic, pupils reactive, negative for conjunctival pallor or scleral icterus, mucous membranes moist. Lungs: Clear to auscultation, sounds equal and diminished bilaterally. Heart: S1S2, regular, negative for clicks, rubs, Abdomen: Soft, nondistended, nontender. Previous PEG site opening noted with a scant amount of drainage. Pelvis: Stable nontender. Genitourinary: Deferred. Rectal: Deferred. Extremities: Traumatic and atrophied in the lower extremities there is no spontaneous movement noted. Neuro: Awake, alert, patient is nonverbal is baseline for her caregiver. She is making eye contact with her caregiver and nursing staff. Diagnostics: Abdominal Xray with 20 cc contrast injection via peg CT of abdomen without contrast Therapeutics: PEG tube reinsertion attempt Impression: PEG tube dislodgment Plan: Discussed with the case with the on-call general surgeon. We will attempt to reinsert a 18 Djiboutian gastric tube into the previous PEG site. Informed by the general surgeon to contact them if unable to place and they will present to the ED to attempt to replace the gastric tube. 18 bengali gastric tube inserted to previous peg tube site. The new gastric tube slid on one attempt. 30 mls of sterile water was injected through the peg tube which was easly injected. The surrounding did not raise with the injection of saline. CT results discussed with both the bonsai culturist surgeon and radiology. At this time the patient must return back to [facility] due to the malposition of the PEG tube. Definitive disposition and diagnosis as appropriate pending reevaluation and review of above. - Related Data Allergies Allergy/AdvReac Type Severity Reaction Status Date / Time erythromycin base Allergy Nausea and Verified 01/03/19 21:14 Vomiting piperacillin [From Zosyn] Allergy Facial Verified 02/04/19 02:39 Swelling tazobactam [From Zosyn] Allergy Facial Verified 02/04/19 02:39 Swelling Home Meds: Home Meds carBAMazepine [Tegretol XR] 600 mg PO BID 02/14/17 [History] levETIRAcetam [Keppra] 500 mg PO BID 02/14/17 [History] Baclofen 20 mg PO QID 02/03/19 [History] Past Medical History HEENT History: Reports: Cataract, Other (See Below) Other HEENT History: right eye posterior capsulotomy Cardiovascular History: Reports: Hypertension Respiratory History: Reports: None Gastrointestinal History: Reports: None Genitourinary History: Reports: None [employer]MOD[employer] C[employer]ER SERVICE History: Reports: None Musculoskeletal History: Reports: Arthritis, Other (See Below) Other Musculoskeletal History: Scoliosis, spastic quadraplegia Neurological History: Reports: Cerebral Palsy, Seizure, Other (See Below) Other Neuro History: Spastic Quadriplegia Psychiatric History: Reports: Other (See Below) Other Psychiatric History: Mental disabled Endocrine/Metabolic History: Reports: None Hematologic History: Reports: None Immunologic History: Reports: None Oncologic (Cancer) History: Reports: None Dermatologic History: Reports: None - Infectious Disease History Infectious Disease History: Reports: None - Past Surgical History HEENT Surgical History: Reports: Cataract Surgery, Oral Surgery Other HEENT Surgeries/Procedures: multiple dental cleanings Female Surgical History: Reports: Other (See Below) Other Female Surgeries/Procedures: Laparoscopy Neurological Surgical History: Reports: C-Spine, Laminectomy Musculoskeletal Surgical History: Reports: Other (See Below) Other Musculoskeletal Surgeries/Procedures:: cervical Laminectomy, C3-C6, lengthening of leg muscles Social & Family History - Family History Family Medical History: Noncontributory - Tobacco Use Smoking Status *Q: Unknown Ever Smoked Second Hand Smoke Exposure: No - Caffeine Use Caffeine Use: Reports: None - Recreational Drug Use Recreational Drug Use: No Course - Vital Signs Last Recorded V/S: Last Vital Signs Temp 36.3 C 02/04/19 02:32 Pulse 117 H 02/04/19 02:32 Resp 20 02/04/19 02:32 BP 146/83 H 02/04/19 02:32 Pulse Ox 94 L 02/04/19 02:32 - Orders/Labs/Meds Orders: Active Orders 24 hr Category Date Time Status Notify Provider Consults [RC] ASDIRECTED Care 02/04/19 02:22 Active Consult to Physician [CONS] Stat Cons 02/04/19 02:22 Active CBC WITH AUTO DIFF [HEME] Stat Lab 02/04/19 02:03 Ordered COMPREHENSIVE METABOLIC PN,CMP [CHEM] Stat Lab 02/04/19 02:03 Ordered Ciprofloxacin in D5W [Cipro in D5W 400 MG/200 ML] 400 Med 02/04/19 02:45 Active mg Premix Bag 1 bag IV Q12H Sodium Chloride 0.9% [Normal Saline] 1,000 ml Med 02/04/19 02:15 Active IV ASDIRECTED Sodium Chloride 0.9% [Saline Flush] Med 02/04/19 02:04 Active 10 ml FLUSH ASDIRECTED PRN Sodium Chloride 0.9% [Saline Flush] Med 02/04/19 02:04 Active 2.5 ml FLUSH ASDIRECTED PRN metroNIDAZOLE/Normal Saline [Flagyl 500 MG in NS 100 ML Med 02/04/19 02:38 Active ] 500 mg Premix Bag 1 bag IV ONETIME Saline Lock Insert [OM.PC] Stat Oth 02/04/19 02:03 Ordered Medication Orders Sodium Chloride (Normal Saline) 1,000 mls @ 125 mls/hr IV ASDIRECTED CHEVY Last Admin: 02/04/19 02:50 Dose: 125 mls/hr Ciprofloxacin/Dextrose 400 mg/ (Premix) 200 mls @ 200 mls/hr IV Q12H CHEVY Last Admin: 02/04/19 02:58 Dose: 200 mls/hr Metronidazole 500 mg/ Premix 100 mls @ 100 mls/hr IV ONETIME ONE Stop: 02/04/19 03:37 Last Admin: 02/04/19 02:51 Dose: 100 mls/hr Sodium Chloride (Saline Flush) 10 ml FLUSH ASDIRECTED PRN PRN Reason: Keep Vein Open Sodium Chloride (Saline Flush) 2.5 ml FLUSH ASDIRECTED PRN PRN Reason: Keep Vein Open Labs: Laboratory Tests 02/04/19 Range/Units 02:58 Lactate 1.6 (0.20-2.00) mmol/L Meds: Medications Generic Name Dose Route Start Last Admin Trade Name Freq PRN Reason Stop Dose Admin Sodium Chloride 1,000 mls @ 125 mls/hr 02/04/19 02:15 02/04/19 02:50 Normal Saline IV 125 mls/hr ASDIRECTED CHEVY Administration Ciprofloxacin/Dextrose 400 mg/ 200 mls @ 200 mls/hr 02/04/19 02:45 02/04/19 02:58 Premix IV 200 mls/hr Q12H CHEVY Administration Metronidazole 500 mg/ Premix 100 mls @ 100 mls/hr 02/04/19 02:38 02/04/19 02: 51 IV 02/04/19 03:37 100 mls/hr ONETIME ONE Administration Sodium Chloride 10 ml 02/04/19 02:04 Saline Flush FLUSH ASDIRECTED PRN Keep Vein Open Sodium Chloride 2.5 ml 02/04/19 02:04 Saline Flush FLUSH ASDIRECTED PRN Keep Vein Open Discontinued Medications Generic Name Dose Route Start Last Admin Trade Name Freq PRN Reason Stop Dose Admin Piperacillin Sod/Tazobactam 50 mls @ 100 mls/hr 02/04/19 02:22 Sod 3.375 gm/ Sodium Chloride IV 02/04/19 02:51 ONETIME ONE Departure - Departure Disposition: DC/Tfer to Acute Hospital 02 Clinical Impression: PEG tube malfunction - Discharge Information Referrals: Rama Awad DO [Primary Care Provider] - Forms: ED Department Discharge - My Orders Last 24 Hours: My Active Orders 02/04/19 02:03 CBC WITH AUTO DIFF [HEME] Stat COMPREHENSIVE METABOLIC PN,CMP [CHEM] Stat Saline Lock Insert [OM.PC] Stat 02/04/19 02:04 Sodium Chloride 0.9% [Saline Flush] 10 ml FLUSH ASDIRECTED PRN Sodium Chloride 0.9% [Saline Flush] 2.5 ml FLUSH ASDIRECTED PRN 02/04/19 02:15 Sodium Chloride 0.9% [Normal Saline] 1,000 ml IV ASDIRECTED 02/04/19 02:22 Notify Provider Consults [RC] ASDIRECTED Consult to Physician [CONS] Stat 02/04/19 02:38 metroNIDAZOLE/Normal Saline [Flagyl 500 MG in NS 100 ML] 500 mg Premix Bag 1 bag IV ONETIME 02/04/19 02:45 Ciprofloxacin in D5W [Cipro in D5W 400 MG/200 ML] 400 mg Premix Bag 1 bag IV Q12H - Assessment/Plan Last 24 Hours: My Active Orders 02/04/19 02:03 CBC WITH AUTO DIFF [HEME] Stat COMPREHENSIVE METABOLIC PN,CMP [CHEM] Stat Saline Lock Insert [OM.PC] Stat 02/04/19 02:04 Sodium Chloride 0.9% [Saline Flush] 10 ml FLUSH ASDIRECTED PRN Sodium Chloride 0.9% [Saline Flush] 2.5 ml FLUSH ASDIRECTED PRN 02/04/19 02:15 Sodium Chloride 0.9% [Normal Saline] 1,000 ml IV ASDIRECTED 02/04/19 02:22 Notify Provider Consults [RC] ASDIRECTED Consult to Physician [CONS] Stat 02/04/19 02:38 metroNIDAZOLE/Normal Saline [Flagyl 500 MG in NS 100 ML] 500 mg Premix Bag 1 bag IV ONETIME 02/04/19 02:45 Ciprofloxacin in D5W [Cipro in D5W 400 MG/200 ML] 400 mg Premix Bag 1 bag IV Q12H <Saima Wright - Last Filed: 02/04/19 03:15> ED HPI GENERAL MEDICAL PROBLEM - History of Present Illness INITIAL COMMENTS - FREE TEXT/NARRATIVE: This Is Dr. Wright dictating an addendum note as I'm the supervising physician on this case. I personally took care of this patient on her last admission the beginning of December and transferred her to [facility]. According to caregiver at bedside she was just discharged earlier today when they were rolling her bed and her PEG tube was dislodged. The patient has not had any abdominal bloating. The patient cannot offer any history for input as she is nonverbal at her baseline secondary to her severe brain injury and cerebral palsy. On physical exam her abdomen is soft and nondistended and the PEG tube site is seen with a scant amount of serous sanguinous drainage. I have discussed with the caregiver at bedside that we'll get her out of her special chair and get her in bed and make an attempt at replacing the PEG tube with a smaller version as we do not have the same size tube as was previously placed. If we are unable to get this in I will involve Dr. Munguia our surgeon with whom I have discussed this case at 0014 AM. She is advised me that because the PEG tube was only placed 2 weeks ago the tract may not be formed enough to get a tube back in but advised me to give it a try. Caregiver at bedside is aware of that if we are unsuccessful that the patient will need to have an IV placed for maintenance hydration and be transferred back to [facility] as we are unable to perform PEG tube placements here. A 18 Djiboutian PEG tube was placed in the site easily without much resistance and the balloon was inflated. We could not aspirate gastric contents but the patient has not had a feeding recently. We will order a KUB x-ray with contrast to confirm placement. We were able to flush saline into the PEG tube without resistance or swelling of the soft tissues in the area. The patient tolerated the procedure well and there were no complications 0117: 1 view KUB with Gastrografin appears to show that the tube is not in the stomach properly. I discussed this finding and set the picture to Dr. Munguia who would like me to do a CT scan of the abdomen without contrast to not only delineate whether the tube is but the soft tissues in the surround. 0220: [facility] has contacted me and I've also discussed the CT scan findings with Dr. Munguia who is here in the ED reviewing it personally and she agrees that the G-tube is in place in its tract but the tract is unfortunately in the colon. She recommends a dose of Cipro and Flagyl with IV placement for hydration and transfer back to [facility]. Caregiver at bedside has been notified of the scan findings and the need for transfer. 0228: Case was discussed with Dr. Macias the ER physician at [facility] and [facility] accepts the patient for transfer. He is aware of the images and the findings and we will send those films to him for review of CT and x-ray. Ambulance transfer was arranged and Dr. Munguia agrees that ground is adequate as the patient is hemodynamically stable. We will advise EMS to not dislodge or manipulate the PEG tube as it is currently tamponading the colonic perforation DR Munguia has also done a formal consult after her review of the CT scan please see that dictation for further information Impression: Complicated medical history with recent discharge from [facility], PEG tube placement 2 weeks ago with PEG tube malfunction ED ROS GENERAL - Review of Systems Review Of Systems: ROS reveals no pertinent complaints other than HPI. ED EXAM, GI/ABD - Physical Exam Exam: See Below (See dictation) Course - Orders/Labs/Meds Orders: Active Orders 24 hr Category Date Time Status Notify Provider Consults [RC] ASDIRECTED Care 02/04/19 02:22 Active Consult to Physician [CONS] Stat Cons 02/04/19 02:22 Active CBC WITH AUTO DIFF [HEME] Stat Lab 02/04/19 02:03 Ordered COMPREHENSIVE METABOLIC PN,CMP [CHEM] Stat Lab 02/04/19 02:03 Ordered Ciprofloxacin in D5W [Cipro in D5W 400 MG/200 ML] 400 Med 02/04/19 02:45 Active mg Premix Bag 1 bag IV Q12H Sodium Chloride 0.9% [Normal Saline] 1,000 ml Med 02/04/19 02:15 Active IV ASDIRECTED Sodium Chloride 0.9% [Saline Flush] Med 02/04/19 02:04 Active 10 ml FLUSH ASDIRECTED PRN Sodium Chloride 0.9% [Saline Flush] Med 02/04/19 02:04 Active 2.5 ml FLUSH ASDIRECTED PRN metroNIDAZOLE/Normal Saline [Flagyl 500 MG in NS 100 ML Med 02/04/19 02:38 Active ] 500 mg Premix Bag 1 bag IV ONETIME Saline Lock Insert [OM.PC] Stat Oth 02/04/19 02:03 Ordered Medication Orders Sodium Chloride (Normal Saline) 1,000 mls @ 125 mls/hr IV ASDIRECTED CHEVY Last Admin: 02/04/19 02:50 Dose: 125 mls/hr Ciprofloxacin/Dextrose 400 mg/ (Premix) 200 mls @ 200 mls/hr IV Q12H CHEVY Last Admin: 02/04/19 02:58 Dose: 200 mls/hr Metronidazole 500 mg/ Premix 100 mls @ 100 mls/hr IV ONETIME ONE Stop: 02/04/19 03:37 Last Admin: 02/04/19 02:51 Dose: 100 mls/hr Sodium Chloride (Saline Flush) 10 ml FLUSH ASDIRECTED PRN PRN Reason: Keep Vein Open Sodium Chloride (Saline Flush) 2.5 ml FLUSH ASDIRECTED PRN PRN Reason: Keep Vein Open Labs: Laboratory Tests 02/04/19 Range/Units 02:58 Lactate 1.6 (0.20-2.00) mmol/L Meds: Medications Generic Name Dose Route Start Last Admin Trade Name Freq PRN Reason Stop Dose Admin Sodium Chloride 1,000 mls @ 125 mls/hr 02/04/19 02:15 02/04/19 02:50 Normal Saline IV 125 mls/hr ASDIRECTED CHEVY Administration Ciprofloxacin/Dextrose 400 mg/ 200 mls @ 200 mls/hr 02/04/19 02:45 02/04/19 02:58 Premix IV 200 mls/hr Q12H CHEVY Administration Metronidazole 500 mg/ Premix 100 mls @ 100 mls/hr 02/04/19 02:38 02/04/19 02: 51 IV 02/04/19 03:37 100 mls/hr ONETIME ONE Administration Sodium Chloride 10 ml 02/04/19 02:04 Saline Flush FLUSH ASDIRECTED PRN Keep Vein Open Sodium Chloride 2.5 ml 02/04/19 02:04 Saline Flush FLUSH ASDIRECTED PRN Keep Vein Open Discontinued Medications Generic Name Dose Route Start Last Admin Trade Name Freq PRN Reason Stop Dose Admin Piperacillin Sod/Tazobactam 50 mls @ 100 mls/hr 02/04/19 02:22 Sod 3.375 gm/ Sodium Chloride IV 02/04/19 02:51 ONETIME ONE Departure - Departure Time of Disposition: 02:42 Condition: Fair - My Orders Last 24 Hours: My Active Orders 02/04/19 02:03 CBC WITH AUTO DIFF [HEME] Stat COMPREHENSIVE METABOLIC PN,CMP [CHEM] Stat Saline Lock Insert [OM.PC] Stat 02/04/19 02:04 Sodium Chloride 0.9% [Saline Flush] 10 ml FLUSH ASDIRECTED PRN Sodium Chloride 0.9% [Saline Flush] 2.5 ml FLUSH ASDIRECTED PRN 02/04/19 02:15 Sodium Chloride 0.9% [Normal Saline] 1,000 ml IV ASDIRECTED 02/04/19 02:22 Notify Provider Consults [RC] ASDIRECTED Consult to Physician [CONS] Stat 02/04/19 02:38 metroNIDAZOLE/Normal Saline [Flagyl 500 MG in NS 100 ML] 500 mg Premix Bag 1 bag IV ONETIME 02/04/19 02:45 Ciprofloxacin in D5W [Cipro in D5W 400 MG/200 ML] 400 mg Premix Bag 1 bag IV Q12H - Assessment/Plan Last 24 Hours: My Active Orders 02/04/19 02:03 CBC WITH AUTO DIFF [HEME] Stat COMPREHENSIVE METABOLIC PN,CMP [CHEM] Stat Saline Lock Insert [OM.PC] Stat 02/04/19 02:04 Sodium Chloride 0.9% [Saline Flush] 10 ml FLUSH ASDIRECTED PRN Sodium Chloride 0.9% [Saline Flush] 2.5 ml FLUSH ASDIRECTED PRN 02/04/19 02:15 Sodium Chloride 0.9% [Normal Saline] 1,000 ml IV ASDIRECTED 02/04/19 02:22 Notify Provider Consults [RC] ASDIRECTED Consult to Physician [CONS] Stat 02/04/19 02:38 metroNIDAZOLE/Normal Saline [Flagyl 500 MG in NS 100 ML] 500 mg Premix Bag 1 bag IV ONETIME 02/04/19 02:45 Ciprofloxacin in D5W [Cipro in D5W 400 MG/200 ML] 400 mg Premix Bag 1 bag IV Q12H
--- NOTE | 2019-02-04 01:40 | CR ---
Indication: Peg tube check Technique: Abdomen 1 view Comparison: None Findings/Impression: Single-view of the abdomen shows a gastrostomy tube at the epigastric region with administered contrast within the bowel. Some hazy density overlying the sacrum probably also is within bowel but is more indeterminate. Small left pleural effusion with retrocardiac consolidation. Dictated by Moshe Mendoza MD @ Feb 04 2019 1:36AM Signed by Dr. Moshe Mendoza @ Feb 04 2019 1:39AM
[2019-02-04] MEDS ORDERED: Sodium Chloride 0.9% 10 ML Syringe FLUSH PRN (02:04)
[2019-02-04] MEDS ORDERED: Sodium Chloride 0.9% 2.5 ML Syringe FLUSH PRN (02:04)
[2019-02-04] MEDS ORDERED: Sodium Chloride 0.9% 1,000 ML IV SCH (02:15)
--- NOTE | 2019-02-04 02:18 | CT ---
INDICATION: Assess PEG placement. TECHNIQUE: CT abdomen and pelvis without contrast. COMPARISON: None. FINDINGS: Lower chest: Trace right and small left pleural effusion with some adjacent consolidation left lower lobe. Liver: Normal in size and attenuation. No masses. Gallbladder and bile ducts: Mildly contracted with cholelithiasis. No adjacent inflammation Pancreas: Unremarkable. No mass or inflammation. Spleen: Normal in size. No masses. Adrenal glands: Normal in size. No nodules. Kidneys: Normal in size. No masses, stones, or hydronephrosis. GI tract: The stomach is decompressed and unremarkable. In the epigastric region there is a jejunal tube, however the tube and balloon are present within the transverse colon with administered contrast extending mostly to the cecum (203, 32) as well as a small amount extending to the descending colon. Of note there are also some linear areas of air medial to the cecum and slightly anterior which likely represents some pneumatosis within distal small bowel (201, 68; 203, 22). Vasculature: Atherosclerosis without abdominal aortic aneurysm. Pelvis: Air within the bladder lumen. No adnexal mass. Bones: Spondylolysis L5 with grade 1 anterolisthesis L5-S1. Fragmentation of the left femoral head with prominent left hip effusion, adjacent soft tissue thickening and heterotopic ossification consistent with chronic osteomyelitis. IMPRESSION: 1. Abnormal placement of the gastrostomy tube with the tube in the transverse colon and administered contrast extending into the cecum and distally to the descending colon. Air medial to the cecum appears to represent some small bowel pneumatosis although some introduced peritoneal air could also be part of this lucency. 2. Trace right and small left pleural effusions with dependent atelectasis in the left lower lobe. 3. Cholelithiasis without CT evidence of cholecystitis. 4. Fragmentation of the left hip consistent with chronic osteomyelitis. Results called to Dr. Wright at 0158 on 02/04/[address] all CT scans at this facility use dose modulation, iterative reconstruction, and/or weight-based dosing when appropriate to reduce radiation dose to as low as reasonably achievable. Dictated by Moshe Mendoza MD @ Feb 04 2019 1:40AM Signed by Dr. Moshe Mendoza @ Feb 04 2019 2:17AM
[2019-02-04] MEDS ORDERED: Piperacillin/Tazobactam 3.375 GM in Sodium Chloride 0.9% 50 ML IV ONE (02:22)
[2019-02-04] MEDS ORDERED: metroNIDAZOLE/Normal Saline 500 MG in Premix Bag 1 BAG IV ONE (02:38)
--- NOTE | 2019-02-04 02:41 | PCM.SN ---
- Free Text/Narrative Note: Patient is a 63 year old female with a history of cerebral palsy who was discharged today from [facility] in [place] after a one month stay for aspiration pneumonia. Her caregivers were turning her tonight when her PEG tube fell out. She had it placed in 2 weeks ago. The ER physician assessed her and called me. An 18 namibian feeding tube was back through the gastrostomy tract without difficulty. The tube flushed without difficulty. An abdominal xray was obtained with contrast down the feeding tube. The images appeared abnormal so a CT abdomen pelvis was performed. This showed the gastrostomy tube in the transverse colon with contrast in the colon. I reviewed the images and do not see any evidence of a previous tract into the stomach. The radiologist agreed that the anterior stomach wall appears intact. Concern is that this tube was placed in the colon originally. Given her recent admission, medical issues and the need for surgery, will transfer back to [place].
[2019-02-04] MEDS ORDERED: Ciprofloxacin in D5W 400 MG in Premix Bag 1 BAG IV SCH ×2 (02:45)
[2019-02-04 03:29] VITALS: BP 134/80
[2019-02-04 03:40] LABS: CHLORIDE,CL 104 mmol/L (98-107); SODIUM,NA 139 mmol/L (136-145)
== END 2019-02-04 03:27 ==
LOC: MW.ED 23:43
DX: K94.23 Gastrostomy malfunction (principal); I10 Essential (primary) hypertension; Z88.1 Allergy status to other antibiotic agents; Z79.899 Other long term (current) drug therapy
CPT/HCPCS: 36415; 43762; 74018; 74150; 80053; 83605; 85025; 96365; 99285; A4217; J0744; J3490; J7040

== ENCOUNTER 2020-06-05 14:56 | Emergency (ER) | payer MEDICARE ==
[2020-06-05] MEDS ORDERED: Sodium Chloride 0.9% 2.5 ML Syringe FLUSH PRN (15:26)
[2020-06-05] MEDS ORDERED: Sodium Chloride 0.9% 10 ML Syringe FLUSH PRN (15:26)
--- NOTE | 2020-06-05 15:41 | EDM.PDOC ---
ED HPI GENERAL MEDICAL PROBLEM - General Chief Complaint: General Stated Complaint: PASSING CLOTS Time Seen by Provider: 06/05/20 14:58 Source of Information: Reports: EMS, Provider History Limitations: Reports: Uncooperative - History of Present Illness INITIAL COMMENTS - FREE TEXT/NARRATIVE: 64-year-old female past medical history cerebral palsy, severe intellectual disability, seizure disorder, quadriplegia, PEG tube dependent, history of acute respiratory failure, history of aspiration pneumonia presents from [facility] for abnormal CT scan and drop in hemoglobin. Patient is AAO x0 at baseline and unable to provide any history. Called patient's doctor Dr. Shea who notes that for the last month patient has been found to have blood in her underwear. 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 They were monitoring her hemoglobin which has been consistently 1214. Today on a routine standing order the hemoglobin dropped to 4.7. The patient was also noted to look pale. She was sent to the emergency department for further assessment. - Related Data Allergies Allergy/AdvReac Type Severity Reaction Status Date / Time erythromycin base Allergy Nausea and Verified 01/03/19 21:14 Vomiting piperacillin [From Zosyn] Allergy Facial Verified 02/04/19 02:39 Swelling tazobactam [From Zosyn] Allergy Facial Verified 02/04/19 02:39 Swelling Home Meds: Home Meds levETIRAcetam [Keppra] 500 mg PEGTUBE BID 02/14/17 [History] Baclofen 20 mg PEGTUBE QID 02/03/19 [History] Acetaminophen [8Hr Arthritis Pain Relief] 650 mg PO Q6H 06/05/20 [History] Carbamide Peroxide [Debrox 6.5% Otic Soln] 3 drop EARBOTH BID PRN 06/05/20 [History] Dextrin [Fiber] 1 scoop PEGTUBE QAM 06/05/20 [History] Docusate Sodium/Sennosides [Senna Plus] 1 each PEGTUBE BID PRN 06/05/20 [History] Docusate Sodium/Sennosides [Senna Plus] 1 each PEGTUBE DAILY 06/05/20 [History] Folic Acid 1 mg PEGTUBE DAILY 06/05/20 [History] Hydrocodone/Acetaminophen [Hydrocodone-Acetamin 5-325 mg] 1 each PEGTUBE Q8H PRN 06/05/20 [History] Menthol/Aloe Vera Extract [Icy Hot 16% Power Gel] 1 applic TOP BID 06/05/20 [History] carBAMazepine [Carbamazepine] 400 mg PEGTUBE BID 06/05/20 [History] guaiFENesin [Mucinex] 600 mg PEGTUBE BID PRN 06/05/20 [History] Past Medical History HEENT History: Reports: Cataract, Other (See Below) Other HEENT History: right eye posterior capsulotomy Cardiovascular History: Reports: Hypertension Respiratory History: Reports: None Gastrointestinal History: Reports: None Genitourinary History: Reports: None LIBRARY ASSISTANT History: Reports: None Musculoskeletal History: Reports: Arthritis, Other (See Below) Other Musculoskeletal History: Scoliosis, spastic quadraplegia Neurological History: Reports: Cerebral Palsy, Seizure, Other (See Below) Other Neuro History: Spastic Quadriplegia Psychiatric History: Reports: Other (See Below) Other Psychiatric History: Mental disabled Endocrine/Metabolic History: Reports: None Hematologic History: Reports: None Immunologic History: Reports: None Oncologic (Cancer) History: Reports: None Dermatologic History: Reports: None - Infectious Disease History Infectious Disease History: Reports: None - Past Surgical History HEENT Surgical History: Reports: Cataract Surgery, Oral Surgery Other HEENT Surgeries/Procedures: multiple dental cleanings Female Surgical History: Reports: Other (See Below) Other Female Surgeries/Procedures: Laparoscopy Neurological Surgical History: Reports: C-Spine, Laminectomy Musculoskeletal Surgical History: Reports: Other (See Below) Other Musculoskeletal Surgeries/Procedures:: cervical Laminectomy, C3-C6, lengthening of leg muscles Social & Family History - Family History Family Medical History: Noncontributory - Caffeine Use Caffeine Use: Reports: None ED ROS GENERAL - Review of Systems Review Of Systems: Unable To Obtain (Intellectual disability) Reason Not Obtained: intellectual disability ED EXAM, GENERAL - Physical Exam Exam: See Below Exam Limited By: Other (Intellectual disability) General Appearance: Alert, Other (Chronically ill-appearing contracted elderly female, pallor of skin, PEG tube in place) Throat/Mouth: No Airway Compromise Head: Atraumatic, Normocephalic Neck: Supple Respiratory/Chest: No Respiratory Distress, Lungs Clear, Normal Breath Sounds, No Accessory Muscle Use Cardiovascular: Normal Peripheral Pulses, Regular Rate, Rhythm GI/Abdominal: Soft, Other (Diffuse tenderness to palpation, PEG tube in place, guaiac positive stool) Neurological: Alert Skin Exam: Warm, Dry, Intact, Pallor Course - Vital Signs Last Recorded V/S: Last Vital Signs Temp 98.1 F 06/05/20 15:35 Pulse 106 H 06/05/20 17:58 Resp 16 06/05/20 17:58 BP 127/81 06/05/20 17:58 Pulse Ox 98 06/05/20 17:58 - Orders/Labs/Meds Orders: Active Orders 24 hr Category Date Time Status Verify Patient Consent Obtain [RC] ASDIRECTED Care 06/05/20 17:22 Active RED BLOOD CELLS LP [BBK] Stat Lab 06/05/20 16:13 Results TYPE AND SCREEN [BBK] Stat Lab 06/05/20 16:13 Results UA W/RANDELL RFLX IF INDICATED [URIN] Stat Lab 06/05/20 15:27 Ordered Sodium Chloride 0.9% [Saline Flush] Med 06/05/20 15:26 Active 10 ml FLUSH ASDIRECTED PRN Sodium Chloride 0.9% [Saline Flush] Med 06/05/20 15:26 Active 2.5 ml FLUSH ASDIRECTED PRN cefTRIAXone [Rocephin in Dextrose,Iso-Osm 1 GM/50 ML] 1 Med 06/05/20 18:32 Active gm Premix Bag 1 bag IV ONETIME Saline Lock Insert [OM.PC] Stat Oth 06/05/20 15:26 Ordered Transfuse Red Blood Cells [COMM] Stat Oth 06/05/20 17:22 Ordered Medication Orders Ceftriaxone Sodium/Dextrose 1 (gm/ Premix) 50 mls @ 100 mls/hr IV ONETIME ONE Stop: 06/05/20 19:01 Sodium Chloride (Saline Flush) 10 ml FLUSH ASDIRECTED PRN PRN Reason: Keep Vein Open Sodium Chloride (Saline Flush) 2.5 ml FLUSH ASDIRECTED PRN PRN Reason: Keep Vein Open Labs: Laboratory Tests 06/05/20 06/05/20 06/05/20 Range/Units 16:13 16:13 16:13 WBC 13.30 H (4.0-11.0) K/uL RBC 1.68 L (4.30-5.90) M/uL Hgb 5.0 L (12.0-16.0) g/dL Hct 17.2 L (36.0-46.0) % MCV 102.4 H (80.0-98.0) fL MCH 29.8 (27.0-32.0) pg MCHC 29.1 L (31.0-37.0) g/dL RDW Std Deviation 51.2 (28.0-62.0) fl RDW Coeff of Tr 15 (11.0-15.0) % Plt Count 522 H (150-400) K/uL MPV 9.50 (7.40-12.00) fL Add Manual Diff YES Neutrophils % (Manual) 70 (48.0-80.0) % Lymphocytes % (Manual) 22 (16.0-40.0) % Monocytes % (Manual) 5 (0.0-15.0) % Eosinophils % (Manual) 3 (0.0-7.0) % Nucleated RBC % 0.4 /100WBC Absolute Seg Neuts 9.3 H (1.4-5.7) Lymphocytes # (Manual) 2.9 H (0.6-2.4) Monocytes # (Manual) 0.7 (0.0-0.8) Eosinophils # (Manual) 0.4 (0.0-0.7) Nucleated RBCs # 0 K/uL INR 1.05 APTT 23.0 (18.6-31.3) SEC Lactate 3.4 H* (0.20-2.00) mmol/L Sodium (136-145) mmol/L Potassium (3.5-5.1) mmol/L Chloride (98-107) mmol/L Carbon Dioxide (21.0-32.0) mmol/L BUN (7.0-18.0) mg/dL Creatinine (0.6-1.0) mg/dL Est Cr Clr Drug Dosing Estimated GFR (MDRD) ml/min Glucose (74-106) mg/dL Calcium (8.5-10.1) mg/dL Magnesium (1.8-2.4) mg/dL Total Bilirubin (0.2-1.0) mg/dL AST (15-37) IU/L ALT (14-63) IU/L Alkaline Phosphatase (46-116) U/L Troponin I (0.000-0.056) ng/mL Total Protein (6.4-8.2) g/dL Albumin (3.4-5.0) g/dL Globulin (2.6-4.0) g/dL Albumin/Globulin Ratio (0.9-1.6) Lipase (73-393) U/L Blood Type Antibody Screen Crossmatch 06/05/20 06/05/20 Range/Units 16:13 16:13 WBC (4.0-11.0) K/uL RBC (4.30-5.90) M/uL Hgb (12.0-16.0) g/dL Hct (36.0-46.0) % MCV (80.0-98.0) fL MCH (27.0-32.0) pg MCHC (31.0-37.0) g/dL RDW Std Deviation (28.0-62.0) fl RDW Coeff of Tr (11.0-15.0) % Plt Count (150-400) K/uL MPV (7.40-12.00) fL Add Manual Diff Neutrophils % (Manual) (48.0-80.0) % Lymphocytes % (Manual) (16.0-40.0) % Monocytes % (Manual) (0.0-15.0) % Eosinophils % (Manual) (0.0-7.0) % Nucleated RBC % /100WBC Absolute Seg Neuts (1.4-5.7) Lymphocytes # (Manual) (0.6-2.4) Monocytes # (Manual) (0.0-0.8) Eosinophils # (Manual) (0.0-0.7) Nucleated RBCs # K/uL INR APTT (18.6-31.3) SEC Lactate (0.20-2.00) mmol/L Sodium 137 (136-145) mmol/L Potassium 3.9 (3.5-5.1) mmol/L Chloride 100 (98-107) mmol/L Carbon Dioxide 31.9 (21.0-32.0) mmol/L BUN 14 (7.0-18.0) mg/dL Creatinine 0.8 (0.6-1.0) mg/dL Est Cr Clr Drug Dosing TNP Estimated GFR (MDRD) > 60.0 ml/min Glucose 116 H (74-106) mg/dL Calcium 8.6 (8.5-10.1) mg/dL Magnesium 2.2 (1.8-2.4) mg/dL Total Bilirubin 0.2 (0.2-1.0) mg/dL AST 18 (15-37) IU/L ALT 22 (14-63) IU/L Alkaline Phosphatase 264 H (46-116) U/L Troponin I < 0.050 (0.000-0.056) ng/mL Total Protein 6.8 (6.4-8.2) g/dL Albumin 2.5 L (3.4-5.0) g/dL Globulin 4.3 H (2.6-4.0) g/dL Albumin/Globulin Ratio 0.6 L (0.9-1.6) Lipase 226 (73-393) U/L Blood Type A POSITIVE Antibody Screen NEGATIVE Crossmatch See Detail Meds: Medications Generic Name Dose Route Start Last Admin Trade Name Freq PRN Reason Stop Dose Admin Ceftriaxone Sodium/Dextrose 1 50 mls @ 100 mls/hr 06/05/20 18:32 gm/ Premix IV 06/05/20 19:01 ONETIME ONE Sodium Chloride 10 ml 06/05/20 15:26 Saline Flush FLUSH ASDIRECTED PRN Keep Vein Open Sodium Chloride 2.5 ml 06/05/20 15:26 Saline Flush FLUSH ASDIRECTED PRN Keep Vein Open Discontinued Medications Generic Name Dose Route Start Last Admin Trade Name Freq PRN Reason Stop Dose Admin Diphenhydramine HCl 50 mg 06/05/20 15:54 06/05/20 17:39 Benadryl IVPUSH 06/05/20 15:55 Not Given ONETIME ONE Haloperidol Lactate 5 mg 06/05/20 15:54 06/05/20 17:39 Haldol IM 06/05/20 15:55 Not Given ONETIME ONE Iopamidol 100 ml 06/05/20 17:36 06/05/20 17:37 Isovue Multipack-370 (76%) IVPUSH 06/05/20 17:37 100 ml ONETIME STA Administration Lorazepam 2 mg 06/05/20 15:54 06/05/20 17:39 Ativan IVPUSH 06/05/20 15:55 Not Given ONETIME ONE - Re-Assessments/Exams Free Text/Narrative Re-Assessment/Exam: 06/05/20 15:45 Patient presents with pallor, low hemoglobin on outpatient labs. Known likely cancerous mass from imaging on 0. Patient sent to the emergency department for acute drop in hemoglobin. Will repeat labs, CTA abdomen pelvis. Patient will likely require admission 06/05/20 15:50 Spoke with [facility] nurse who notes that patient always appears pale. Notes that her hemoglobin on 05-19 was 12.7 with an acute drop today to 5.0. Will follow up repeat results and will disposition accordingly. She notes that [facility] [phone] was contacted regarding likely cancerous mass on imaging. 06/05/20 15:55 Spoke with [facility] to confirm she was informed of test results. She is agreeable to patient being admitted or transferred as necessary. 06/05/20 17:21 Repeat hemoglobin is consistent with labs done at outpatient center. Will order blood transfusion (consent secured via telephone with [facility]), will follow up CT results and likely transfer patient for further work-up and management. 06/05/20 18:41 Will transfer patient to [facility] to Dr. Nunez who agrees with plan. Helen ordered. Departure - Departure Time of Disposition: 18:40 Disposition: DC/Tfer to Acute Hospital 02 Condition: Poor Clinical Impression: Anemia Qualifiers: Anemia type: unspecified type Qualified Code(s): D64.9 - Anemia, unspecified - Discharge Information Referrals: PCP,None [Primary Care Provider] - Forms: ED Department Discharge Sepsis Event Note (ED) - Evaluation Sepsis Screening Result: No Definite Risk - Focused Exam Vital Signs: Vital Signs Temp Pulse Resp BP Pulse Ox 06/05/20 17:58 106 H 16 127/81 98 06/05/20 17:45 96 17 110/69 96 06/05/20 16:20 103 H 18 138/109 H 100 06/05/20 16:05 105 H 17 136/98 H 100 06/05/20 15:35 98.1 F 81 18 141/81 H 93 L - My Orders Last 24 Hours: My Active Orders 06/05/20 15:26 Sodium Chloride 0.9% [Saline Flush] 10 ml FLUSH ASDIRECTED PRN Sodium Chloride 0.9% [Saline Flush] 2.5 ml FLUSH ASDIRECTED PRN Saline Lock Insert [OM.PC] Stat 06/05/20 15:27 UA W/RANDELL RFLX IF INDICATED [URIN] Stat 06/05/20 16:13 RED BLOOD CELLS LP [BBK] Stat TYPE AND SCREEN [BBK] Stat 06/05/20 17:22 Verify Patient Consent Obtain [RC] ASDIRECTED Transfuse Red Blood Cells [COMM] Stat 06/05/20 18:32 cefTRIAXone [Rocephin in Dextrose,Iso-Osm 1 GM/50 ML] 1 gm Premix Bag 1 bag IV ONETIME - Assessment/Plan Last 24 Hours: My Active Orders 06/05/20 15:26 Sodium Chloride 0.9% [Saline Flush] 10 ml FLUSH ASDIRECTED PRN Sodium Chloride 0.9% [Saline Flush] 2.5 ml FLUSH ASDIRECTED PRN Saline Lock Insert [OM.PC] Stat 06/05/20 15:27 UA W/RANDELL RFLX IF INDICATED [URIN] Stat 06/05/20 16:13 RED BLOOD CELLS LP [BBK] Stat TYPE AND SCREEN [BBK] Stat 06/05/20 17:22 Verify Patient Consent Obtain [RC] ASDIRECTED Transfuse Red Blood Cells [COMM] Stat 06/05/20 18:32 cefTRIAXone [Rocephin in Dextrose,Iso-Osm 1 GM/50 ML] 1 gm Premix Bag 1 bag IV ONETIME
[2020-06-05] MEDS ORDERED: diphenhydrAMINE 50 MG/ML SDV IVPUSH ONE (15:54)
[2020-06-05] MEDS ORDERED: Haloperidol Lactate 5 MG/ML SDV IM ONE (15:54)
[2020-06-05] MEDS ORDERED: LORazepam 2 MG/ML SDV IVPUSH ONE (15:54)
[2020-06-05 16:52] LABS: BLOOD UREA NITROGEN,BUN 14 mg/dL (7.0-18.0); CARBON DIOXIDE,CO2 31.9 mmol/L (21.0-32.0); CHLORIDE,CL 100 mmol/L (98-107); GLUCOSE RANDOM 116 mg/dL (74-106); LIPASE 226 U/L (73-393); POTASSIUM,K 3.9 mmol/L (3.5-5.1); SODIUM,NA 137 mmol/L (136-145)
[2020-06-05] MEDS ORDERED: Iopamidol 755 MG/ML 500 ML Multipack Bottle IVPUSH STA (17:36)
--- NOTE | 2020-06-05 17:57 | CT ---
Indication: Known cancers mass drop in hemoglobin from 13-4 Technique: Volumetric multidetector CT images of the abdomen and pelvis were obtained after the administration of intravenous contrast using angiographic protocol. 100 cc Isovue 370 Comparison: None available. Findings: There is basilar atelectasis and parenchymal scarring with traction bronchiectasis and likely chronic consolidation within the lung bases. The liver is stable from recent comparison. The portal vein is patent. The gallbladder is somewhat hydropic in appearance, similar to previous exam. There is no significant common biliary ductal dilatation or abrupt cut off. The spleen is normal in enhancement and size. The stomach demonstrates satisfactory position of a gastrostomy tube. The pancreas is normal in enhancement without significant atrophy. The adrenal glands are unremarkable. The right kidney demonstrates severe right-sided hydronephrosis and hydroureter terminating in previously seen exophytic bladder mass with invasion of the right lateral aspect of the bladder measuring up to 6.4 x 3.6 centimeters on series 401, image 722. There are calcific opacities appreciated within the mass, similar to previous exam. There is a minimal amount of stool seen throughout the colon with a right lower quadrant ostomy similar to previous exam. The appendix is likely surgically absent. There is demonstration of a small right pelvic sidewall lymph node seen on series 41, image 668 which measures 1 centimeter. The aorta is nonaneurysmal. The branch vessels of the aorta are grossly patent including the inferior mesenteric, superior mesenteric, renal arteries and celiac axis. There is no significant atherosclerotic disease appreciated. The solid pelvic viscera are grossly unremarkable. There is no free fluid or free air. The anterior abdominal wall is intact without significant hernias. The lumbar vertebral body heights are similar to previous exam. Again seen is marked levo scoliotic deformity of the AP alignment. Likely chronic fracture or osteotomy of the left femoral head is appreciated similar to previous exam. Impression: Overall stable appearance of previously seen invasive bladder mass involving the distal right ureter with associated right-sided hydronephrosis and hydroureter without evidence of large fluid collection to suggest significant hematoma. Correlate with history of urinalysis or gross hematuria if there remains persisting concern for source of blood loss. Please note that all CT scans at this facility use dose modulation, iterative reconstruction, and/or weight-based dosing when appropriate to reduce radiation dose to as low as reasonably achievable. Dictated by David Sewell MD @ Jun 05 2020 5:36PM Signed by Dr. David Sewell @ Jun 05 2020 5:52PM
[2020-06-05] MEDS ORDERED: cefTRIAXone 1 GM in Premix Bag 1 BAG IV ONE (18:32)
[2020-06-06 03:32] VITALS: BP 171/104; PULSE 110
== END 2020-06-05 20:50 ==
LOC: MW.ED 14:56
DX: D64.9 Anemia, unspecified (principal); M19.90 Unspecified osteoarthritis, unspecified site; I10 Essential (primary) hypertension; Z79.899 Other long term (current) drug therapy; Z88.1 Allergy status to other antibiotic agents
CPT/HCPCS: 36415; 36430; 74174; 80053; 81001; 83605; 83690; 83735; 84484; 85025; 85610; 85730; 86850; 86900; 86901; 86920; 86921; 86922; 96365; 99285; J0696; P9016; Q9967